=== PATIENT | male | born 1965 | race Caucasian/White ===

== ENCOUNTER 2017-07-10 17:47 | Observation (INO) | payer MEDICARE ==
[2017-07-10] MEDS ORDERED: ONDANSETRON 4 MG/2 ML VIAL IVP STA (18:14)
[2017-07-10] MEDS ORDERED: MECLIZINE 12.5 MG TAB PO STA (18:14)
[2017-07-10] MEDS ORDERED: SODIUM CHLORIDE 0.9% 1,000 ML IV STA (18:14)
--- NOTE | 2017-07-10 18:33 | ED ---
Nausea/Vomiting/Diarrhea HPI - General Chief complaint: Nausea/Vomiting/Diarrhea Stated complaint: MED REACTION, WITHDRAWAL Time Seen by Provider: 07/10/17 18:04 Source: patient, RN notes reviewed Mode of arrival: wheelchair Limitations: no limitations - History of Present Illness Initial comments: This is a 52-year-old male who presents to the emergency department with chief complaint of dizziness. Patient states that he woke up at 9 AM this morning and had sudden onset of dizziness. He states that he feels like the room has been spinning. He admits to associated nausea and states that he vomited 4 times today. He states that he feels especially dizzy when he moves his eyes. He also admits to associated headache. Patient states that his family physician is weaning him off Cymbalta. He states that he was taking 40 mg once a day and is now taking 20 mg twice a day. He is worried that he is having withdrawals. Patient also states that he takes Percocet for back pain. His last pill was this morning and he has not picked up his new prescription. He is also worried that he may be withdrawing from pain medication. Patient states that he had a similar episode of dizziness for 3 weeks ago. Denies fevers or chills, chest pain or shortness of breath, abdominal pain, constipation or diarrhea, vision changes. - Related Data Home Medications Medication Instructions Recorded Confirmed Cyclobenzaprine [Flexeril] 10 mg PO DAILY PRN 07/10/17 07/10/17 DULoxetine HCL [Cymbalta] 20 mg PO BID 07/10/17 07/10/17 Lisinopril [Zestril] 5 mg PO DAILY 07/10/17 07/10/17 oxyCODONE-APAP 7.5-325MG [Percocet 1 tab PO TID PRN 07/10/17 07/10/17 7.5-325 mg] Allergies Allergy/AdvReac Type Severity Reaction Status Date / Time No Known Allergies Allergy Verified 07/10/17 18:13 Review of Systems ROS Statement: Those systems with pertinent positive or pertinent negative responses have been documented in the HPI. ROS Other: All systems not noted in ROS Statement are negative. Past Medical History Additional Past Medical History / Comment(s): HX HEAD INJURY, FREQUENT HEADACHES History of Any Multi-Drug Resistant Organisms: None Reported Past Surgical History: Back Surgery, Cholecystectomy, Orthopedic Surgery Additional Past Surgical History / Comment(s): cervical SX X2 WITH PLATE, lumbar fusion WITH 2 RODS, right shoulder tendon repair, bilateral rotator cuff , TOTAL SHOULDER SX KOFI X5, KOFI ELBOW, PAIN CLINIC Past Anesthesia/Blood Transfusion Reactions: No Reported Reaction Past Psychological History: Anxiety Smoking Status: Never smoker Past Alcohol Use History: Occasional Past Drug Use History: None Reported General Exam - General Exam Comments Initial Comments: General: Awake and alert, well-developed; in no apparent distress. Lying on ED stretcher in a dark room with wash cloth covering his eyes. is at bedside. HEENT: Head atraumatic, normocephalic. Pupils are equal, round and reactive to light. Extraocular movements intact. No nystagmus noted. Oropharynx moist without erythema or exudate. Neck: Supple. Normal ROM. Cardiovascular: Regular rate and rhythm. No murmurs, rubs or gallops. Chest symmetrical. Respiratory: Lungs clear to auscultation bilaterally. No wheezes, rales or rhonchi. Normal respiratory effort with no use of accessory muscles. Abdomen: Soft, non-tender, non-distended. No rigidity, rebound or guarding. Normal bowel sounds in all 4 quadrants. Musculoskeletal: Normal ROM, no tenderness bilateral upper and lower extremities. Skin: [place], warm and dry without rashes or lesions. Neurological: Alert and oriented x3. CN II-XII grossly intact. Speech is fluent and answers are appropriate. No focal neuro deficits. Psychiatric: Normal mood and affect. No overt signs of depression or anxiety noted. Limitations: no limitations Course Vital Signs 07/10/17 07/10/17 07/10/17 17:52 19:18 21:53 Temperature 97.6 F 98.5 F Pulse Rate 82 85 86 Respiratory 18 16 16 Rate Blood Pressure 153/98 142/90 144/81 O2 Sat by Pulse 97 97 99 Oximetry - Reevaluation(s) Reevaluation #1: On reevaluation, patient states that he is feeling better but not 100%. I discussed the case with attending physician, Dr. Suero. Reglan will be administered and patient will undergo computed tomography scan. Pending results. 07/10/17 19:38 Reevaluation #2: I discussed CT results with patient. CT of the brain revealed no acute abnormalities. Patient was lying comfortably on the ED stretcher when I entered the room. He was watching television on his 's cell phone. I did have him sit up to evaluate how he was feeling. Upon sitting up, patient complained of an increase in severity of his dizziness. At the time, patient had been given Reglan and meclizine. He will be given a scopolamine patch and Ativan to see if this relieves his symptoms. We will reevaluate in 45 minutes. 07/10/17 20:35 Medical Decision Making - Medical Decision Making This is a 52-year-old male who presents to the emergency department with chief complaint of dizziness. Patient states that the dizziness came on suddenly and it feels like the room is spinning. He admits to associated nausea, vomiting and headache. Patient was given Antivert, Reglan and Toradol while in the emergency department. CT brain without contrast revealed no acute abnormalities. Patient's vital signs at been stable and he is in no acute distress.patient was given meclizine, Reglan, scopolamine and Ativan while in the emergency department. Patient still continued to complain of symptoms and is unable while ambulating. Patient will be admitted for observation under Dr. Santoyo with neuro consult. Patient is in agreement with admission. All questions were answered. - Lab Data Result diagrams: 07/10/17 18:15 07/10/17 18:15 Lab Results 07/10/17 07/10/17 Range/Units 18:15 18:15 WBC 20.1 H (3.8-10.6) k/uL RBC 5.11 (4.30-5.90) m/uL Hgb 16.2 (13.0-17.5) gm/dL Hct 44.8 (39.0-53.0) % MCV 87.6 (80.0-100.0) fL MCH 31.7 (25.0-35.0) pg MCHC 36.1 (31.0-37.0) g/dL RDW 13.2 (11.5-15.5) % Plt Count 262 (150-450) k/uL Neutrophils % 85 % Lymphocytes % 10 % Monocytes % 3 % Eosinophils % 1 % Basophils % 0 % Neutrophils # 17.2 H (1.3-7.7) k/uL Lymphocytes # 2.0 (1.0-4.8) k/uL Monocytes # 0.6 (0-1.0) k/uL Eosinophils # 0.2 (0-0.7) k/uL Basophils # 0.0 (0-0.2) k/uL Sodium 141 (137-145) mmol/L Potassium 4.5 (3.5-5.1) mmol/L Chloride 104 (98-107) mmol/L Carbon Dioxide 25 (22-30) mmol/L Anion Gap 12 mmol/L BUN 24 H (9-20) mg/dL Creatinine 0.70 (0.66-1.25) mg/dL Est GFR (CKD-EPI)AfAm >90 (>60 ml/min/1.73 sqM) Est GFR (CKD-EPI)NonAf >90 (>60 ml/min/1.73 sqM) Glucose 109 H (74-99) mg/dL Calcium 10.2 (8.4-10.2) mg/dL Total Bilirubin 0.4 (0.2-1.3) mg/dL AST 26 (17-59) U/L ALT 44 (21-72) U/L Alkaline Phosphatase 80 (38-126) U/L Total Protein 7.5 (6.3-8.2) g/dL Albumin 4.6 (3.5-5.0) g/dL Amylase 54 (30-110) U/L Lipase 48 (23-300) U/L - Radiology Data Radiology results: report reviewed CT brain without contrast findings: The calvarium is intact. There is no intracranial hemorrhage. There is no mass or mass effect. There is no definite new attenuation defect. Remainder of the intra-axial and extra-axial compartment examination is unremarkable. The paranasal sinuses are clear, except for the left maxillary sinus where there is a 2.2 cm mucous retention cyst. The middle ear cavities and mastoid sinus air cells are clear. The orbits are intact. Impression: No acute process. Disposition Clinical Impression: Vertigo Disposition: ADMITTED IP TO THIS HOSP Condition: Stable Referrals: Russel Phillips MD [Primary Care Provider] - 1-2 days Time of Disposition: 22:28
[2017-07-10 18:34] LABS: Basophils % (A) 0 %; Eosinophils # (A) 0.2 k/uL (0-0.7); Eosinophils % (A) 1 %; HCT 44.8 % (39.0-53.0); HGB 16.2 gm/dL (13.0-17.5); Lymphocytes % (A) 10 %; MCH 31.7 pg (25.0-35.0); MCHC 36.1 g/dL (31.0-37.0); MCV 87.6 fL (80.0-100.0); Mean Platelet Volume 6.9; Monocytes # (A) 0.6 k/uL (0-1.0); Monocytes % (A) 3 %; Neutrophils # (A) 17.2 k/uL (1.3-7.7); Neutrophils % (A) 85 %; Platelet Count 262 k/uL (150-450); RBC 5.11 m/uL (4.30-5.90); RDW 13.2 % (11.5-15.5); WBC 20.1 k/uL (3.8-10.6)
[2017-07-10] MEDS ORDERED: KETOROLAC 30 MG/ML 1 ML VIAL IVP STA (18:40)
[2017-07-10 18:44] LABS: ALT 44 U/L (21-72); AST 26 U/L (17-59); Albumin 4.6 g/dL (3.5-5.0); Alkaline Phosphatase 80 U/L (38-126); Amylase 54 U/L (30-110); Anion Gap 12 mmol/L; Blood Urea Nitrogen 24 mg/dL (9-20); Calcium 10.2 mg/dL (8.4-10.2); Carbon Dioxide 25 mmol/L (22-30); Chloride 104 mmol/L (98-107); Glucose 109 mg/dL (74-99); Lipase 48 U/L (23-300); Potassium 4.5 mmol/L (3.5-5.1); Sodium 141 mmol/L (137-145); Total Bilirubin 0.4 mg/dL (0.2-1.3); Total Protein 7.5 g/dL (6.3-8.2)
[2017-07-10] MEDS ORDERED: METOCLOPRAMIDE 5 MG/ML 2 ML VIAL IVP STA (19:35)
--- NOTE | 2017-07-10 20:06 | CT ---
EXAMINATION: CT brain wo con DATE AND TIME: 07/10/2017 7:53 PM ORDERING PROVIDER: Darcie Olivier CLINICAL INDICATION: dizziness TECHNIQUE: Standard departmental protocol. DLP 795 mGy-cm. COMPARISON: None. DESCRIPTION: The calvarium is intact. There is no intracranial hemorrhage. There is no mass or mass effect. There is no definite new attenu ation defect. Remainder of the intra-axial and extra-axial compartment examination is unremarkable. The paranasal sinuses are clear, except for the left maxillary sinus where there is a 2.2 cm mucous r etention cyst. The middle ear cavities and mastoid sinus air cells are clear. The orbits are intact. IMPRESSION: NO ACUTE PROCESS.
[2017-07-10] MEDS ORDERED: SCOPOLAMINE 1.5MG/72HR PATCH TRANSDERM STA (20:38)
[2017-07-10] MEDS ORDERED: LORazepam 2 MG/ML INJ IV STA (20:39)
[2017-07-10] MEDS ORDERED: ACETAMINOPHEN TAB 325 MG TAB PO PRN (22:21)
[2017-07-10] MEDS ORDERED: NALOXONE 0.4 MG/ML 1 ML VIAL IV PRN (22:21)
[2017-07-10] MEDS ORDERED: KETOROLAC 30 MG/ML 1 ML VIAL IVP PRN (22:21)
[2017-07-10] MEDS ORDERED: METOCLOPRAMIDE 5 MG/ML 2 ML VIAL IVP PRN (22:24)
[2017-07-10] MEDS ORDERED: MECLIZINE 25 MG TAB PO PRN (22:25)
[2017-07-10 23:14] VITALS: BMI 32.3
[2017-07-10] MEDS ORDERED: LORazepam 2 MG/ML INJ IV PRN ×3 (23:23)
[2017-07-10] MEDS: SODIUM CHLORIDE 0.9% 1,000 ML IV SCH (23:35)
[2017-07-10] MEDS: oxyCODONE-APAP 5-325MG 1 EACH TAB PO PRN (23:41)
[2017-07-10] MEDS: DULoxetine HCL 20 MG CAPSULE.DR PO SCH (23:41)
[2017-07-11] MEDS: oxyCODONE-APAP 5-325MG 1 EACH TAB PO PRN ×2 (06:47→15:44)
[2017-07-11 06:53] LABS: Basophils % (A) 0 %; Eosinophils % (A) 0 %; HCT 42.6 % (39.0-53.0); HGB 14.7 gm/dL (13.0-17.5); Lymphocytes # (A) 2.1 k/uL (1.0-4.8); Lymphocytes % (A) 14 %; MCH 30.7 pg (25.0-35.0); MCHC 34.5 g/dL (31.0-37.0); MCV 88.9 fL (80.0-100.0); Mean Platelet Volume 7.3; Monocytes # (A) 0.6 k/uL (0-1.0); Monocytes % (A) 4 %; Neutrophils # (A) 11.4 k/uL (1.3-7.7); Neutrophils % (A) 80 %; Platelet Count 258 k/uL (150-450); RDW 13.5 % (11.5-15.5); WBC 14.3 k/uL (3.8-10.6)
[2017-07-11 07:22] LABS: ALT 36 U/L (21-72); AST 22 U/L (17-59); Albumin 3.8 g/dL (3.5-5.0); Alkaline Phosphatase 67 U/L (38-126); Anion Gap 10 mmol/L; Blood Urea Nitrogen 33 mg/dL (9-20); Calcium 9.5 mg/dL (8.4-10.2); Carbon Dioxide 24 mmol/L (22-30); Chloride 107 mmol/L (98-107); Glucose 92 mg/dL (74-99); Potassium 4.9 mmol/L (3.5-5.1); Sodium 141 mmol/L (137-145); Total Bilirubin 0.3 mg/dL (0.2-1.3); Total Protein 6.4 g/dL (6.3-8.2)
[2017-07-11] MEDS: DULoxetine HCL 20 MG CAPSULE.DR PO SCH (08:13)
[2017-07-11] MEDS ORDERED: LISINOPRIL 5 MG TAB PO SCH (09:00)
[2017-07-11] MEDS: SODIUM CHLORIDE 0.9% 1,000 ML IV SCH (12:44)
--- NOTE | 2017-07-11 13:12 | P.HPIM ---
History of Present Illness H&P Date: 07/11/17 Chief Complaint: Dizziness, vomiting HISTORY AND PHYSICAL AND DISCHARGE SUMMARY: This is a 52-year-old male patient of Dr. Phillips with history of head injury 25years ago, history of cervical stenosis and lumbar stenosis status post Surgeries and back surgeries, history of hypertension and anxiety comes in with new onset of dizziness associated with nausea and multiple episodes of vomiting that started yesterday at 9 AM. Patient felt dizzy on changing position of his head in the bed. He states he had similar symptoms 3 weeks ago. Both of these symptoms initiated on waking up in the morning. Denies any tinnitus or hearing loss. Patient denies any motor or sensory loss. He denies any vision loss. No history of seizure-like activity. No history of stroke in the past. Patient was recently switched from 40 mg once daily of simvastatin 20 mg twice daily and feels he might be withdrawing from it. On evaluation in the morning he is feeling better. Dizziness is improved. Patient received multiple medication in the ER including Ativan, meclizine, ketorolac and Reglan. CT head was negative. WBC elevated which improved from 20-14 secondary to dehydration. Patient presented and appears to be related to benign positional vertigo. Timmy maneuver was done bedside with nystagmus to the right. Neurology evaluation pending Review of Systems Constitutional: Denies chills, Denies fever, Denies lethargy, Denies malaise, Denies poor appetite, Denies weakness, Denies weight loss Eyes: denies decreased vision, denies diplopia, denies discharge, denies pain Ears: deny: decreased hearing Ears, nose, mouth and throat: Denies dental pain, Denies headache, Denies nasal discharge, Denies nose pain Cardiovascular: Denies chest pain, Denies decreased exercise tolerance, Denies edema, Denies high blood pressure, Denies irregular heart beat, Denies palpitations, Denies paroxysmal nocturnal dyspnea, Denies rapid heart beat, Denies shortness of breath Respiratory: Denies congestion, Denies cough, Denies cough with sputum, Denies dyspnea, Denies home oxygen, Denies wheezing Gastrointestinal: Denies abdominal pain, Denies change in bowel habits, Denies coffee ground emesis, Denies early satiety, Denies excessive gas, Denies heartburn, Denies hematemesis, Denies hematochezia, Denies loss of appetite, Denies nausea, Denies vomiting Genitourinary: Denies dysuria, Denies flank pain, Denies kidney stones, Denies menorrhagia, Denies urgency, Denies urinary frequency Musculoskeletal: Denies gait dysfunction, Denies limitation of motion, Denies morning stiffness, Denies muscle cramps Integumentary: Denies rash, Denies wounds, Denies brittle nails, Denies change in hair/nails, Denies darkening of skin Neurological: Denies balance difficulties, Denies change in speech, Denies double vision, Denies gait dysfunction, Denies loss of vision, Denies motor disturbance, Denies numbness, Denies paralysis, Denies paresthesias, Denies seizures Psychiatric: Denies anxiety, Denies depression Endocrine: Denies excessive sweating, Denies excessive thirst, Denies high blood sugars, Denies palpitations Hematologic/Lymphatic: Denies easy bruising, Denies lymphadenopathy Past Medical History Additional Past Medical History / Comment(s): HX HEAD INJURY, FREQUENT HEADACHES History of Any Multi-Drug Resistant Organisms: None Reported Past Surgical History: Back Surgery, Cholecystectomy, Orthopedic Surgery Additional Past Surgical History / Comment(s): cervical SX X2 WITH PLATE, lumbar fusion WITH 2 RODS, right shoulder tendon repair, bilateral rotator cuff , TOTAL SHOULDER SX KOFI X5, KOFI ELBOW, PAIN CLINIC Past Anesthesia/Blood Transfusion Reactions: No Reported Reaction Smoking Status: Never smoker - Past Family History Mother Family Medical History: COPD, Dementia Father Family Medical History: Diabetes Mellitus Additional Family Medical History / Comment(s): neuropathy Medications and Allergies Home Medications Medication Instructions Recorded Confirmed Type Cyclobenzaprine [Flexeril] 10 mg PO DAILY PRN 07/10/17 07/10/17 History DULoxetine HCL [Cymbalta] 20 mg PO BID 07/10/17 07/10/17 History Lisinopril [Zestril] 5 mg PO DAILY 07/10/17 07/10/17 History oxyCODONE-APAP 7.5-325MG [Percocet 1 tab PO TID PRN 07/10/17 07/10/17 History 7.5-325 mg] Meclizine [Antivert] 25 mg PO Q6HR PRN #60 tab 07/11/17 Rx Allergies Allergy/AdvReac Type Severity Reaction Status Date / Time No Known Allergies Allergy Verified 07/10/17 23:03 Physical Exam Vitals: Vital Signs Temp Pulse Pulse Resp BP BP Pulse Ox 07/11/17 07:59 98 F 60 16 114/55 95 07/11/17 04:00 18 07/11/17 00:00 18 07/10/17 23:04 97.7 F 64 18 147/88 95 07/10/17 22:54 98.2 F 84 18 141/81 98 07/10/17 21:53 98.5 F 86 16 144/81 99 07/10/17 19:18 85 16 142/90 97 07/10/17 17:52 97.6 F 82 18 153/98 97 Intake and Output 07/10/17 07/11/17 07/11/17 22:59 06:59 14:59 Other: Voiding Method Toilet # Voids 1 Weight 90.718 kg 90.7 kg - Constitutional General appearance: cooperative, no acute distress, obese - EENT Eyes: anicteric sclerae, PERRLA, normal appearance Nystagmus present on the right ENT: hearing grossly normal - Neck Neck: no lymphadenopathy, normal ROM, no other, no rigidity, no stridor, no thyromegaly - Respiratory Respiratory: bilateral: CTA, negative: diminished, dullness, rales, rhonchi - Cardiovascular Rhythm: regular Heart sounds: normal: S1, S2 Abnormal Heart Sounds: no systolic murmur, no diastolic murmur, no rub, no S3 Gallop, no S4 Gallop, no click, no other - Gastrointestinal General gastrointestinal: normal bowel sounds, soft - Integumentary Integumentary: no rash - Neurologic Neurologic: CNII-XII intact - Musculoskeletal Musculoskeletal: gait normal, strength equal bilaterally - Psychiatric Psychiatric: A&O x's 3, appropriate affect Results CBC & Chem 7: 07/11/17 06:19 07/11/17 06:19 Labs: Abnormal Lab Results - Last 24 Hours (Table) 07/10/17 07/10/17 07/11/17 Range/Units 18:15 18:15 06:19 WBC 20.1 H 14.3 H (3.8-10.6) k/uL Neutrophils # 17.2 H 11.4 H (1.3-7.7) k/uL BUN 24 H (9-20) mg/dL Glucose 109 H (74-99) mg/dL 07/11/17 Range/Units 06:19 WBC (3.8-10.6) k/uL Neutrophils # (1.3-7.7) k/uL BUN 33 H (9-20) mg/dL Glucose (74-99) mg/dL Thrombosis Risk Factor Assmnt - DVT/VTE Prophylaxis DVT/VTE Prophylaxis: Mechanical Prophylaxis ordered - Choose All That Apply Each Factor Represents 1 point: Age 41-60 years Thrombosis Risk Factor Assessment Total Risk Factor Score: 1 Thrombosis Risk Factor Assessment Level: Low Risk Assessment and Plan Plan: #1 acute vertigo associated with vomiting. CT head negative for any acute lesion. Neurological exam without any finding of stroke. Patient's presentation appears to be related to benign positional vertigo with improvement with meclizine. Patient instructed on how to perform Apley's maneuver at home. Meclizine prescribed for vertigo. Patient instructed not to drive after demonstration of the medication #2 leukocytosis likely secondary to dehydration from recurrent vomiting. Improving. Continue fluids at 75 mL per hour #3 hypertension continue lisinopril 5 mg daily #4 anxiety continue Cymbalta 20 mg twice a day #5 chronic back pain with cervical and lumbar stenosis status post cervical surgeries with plate and lumbar fusion with rods. Continue Percocet as needed for pain control #6 DVT prophylaxis with SCDs CODE STATUS full code Disposition patient can be discharged home once cleared by neurologist CC a copy of discharge to Dr. Phillips
[2017-07-11 15:28] VITALS: BP 132/81; PULSE 64; RESP 17; TEMP 98.7
--- NOTE | 2017-07-11 23:43 | CONS ---
CONSULTATION DATE OF CONSULTATION: 07/11/2017. CHIEF COMPLAINT: Vertigo. HISTORY OF PRESENT ILLNESS: The patient is a pleasant 52-year-old male who is being evaluated by the neurology service per the request of Dr. Nathan for vertigo. The patient was brought into [facility] Emergency Room with the complaints of sudden onset of vertigo and nausea. The patient states that he has had vertigo in the past, but it would only last a few minutes and it would resolve on its own. When the symptoms did not resolve after several hours, he was brought into [facility] Emergency Room. He denies any hearing loss or tinnitus. A stat CT scan of the brain was done, which was normal. His CBC showed mild leukocytosis at 14.3. His comprehensive metabolic profile was normal except for slightly elevated BUN at 33. The patient was given Antivert in the emergency room and admitted for further workup and management. At the time of my evaluation, he reports complete resolution of his vertigo after his Antivert dose. He has been ambulating with no difficulties. He denies any numbness or tingling and denies any weakness. He denies any headache. PAST MEDICAL HISTORY: Recurrent vertigo, history of closed head injury, recurrent headaches, history of spine surgery, cholecystectomy, orthopedic surgeries, anxiety disorder. SOCIAL HISTORY: He denies any tobacco, alcohol or drug use. FAMILY HISTORY: Positive for diabetes, dementia and chronic obstructive pulmonary disease. HOME MEDICATIONS: Reviewed in the chart. ALLERGIES: No known drug allergies. REVIEW OF SYSTEM: As mentioned above and otherwise negative. EXAM: Vital signs show a temperature of 98.7, pulse 64, respirations 17, blood pressure 132/81. GENERAL APPEARANCE: The patient is a well-developed male who appears to be in no acute distress. HEENT: Normocephalic, atraumatic. No facial asymmetry is seen. Extraocular muscles are intact with no nystagmus seen. NECK: Supple with no masses felt. CARDIOVASCULAR: Regular rate and rhythm. ABDOMEN: Nontender nondistended. Extremities showed no edema or clubbing. NEUROLOGICAL: The patient is alert, aware and oriented x3. Speech and language are normal. Strength is full in all 4 extremities. Sensory was normal to light touch in all 4 extremities. No tremors or seizure-like activity is seen. No facial asymmetry is noticed on cranial nerve testing. IMPRESSION: 1. Vertigo. 2. Nausea. 3. Leukocytosis. RECOMMENDATION: The patient's vertigo and nausea have completely resolved with Antivert, as mentioned above. His neurological examination is normal and his CT scan of the brain showed no abnormalities. The patient likely has benign paroxysmal vertigo. He should be maintained on oral Antivert as needed at home. I also recommended to the patient to follow up with an ENT physician. Consider further workup for his leukocytosis. Otherwise, from a neurology standpoint, the patient is cleared for discharge. Thank you for allowing me to participate in the care of your patient. If you have any questions, please feel free to contact me. MILKA / IJN: [id number] /
== END 2017-07-11 19:40 | disposition home or self-care (01) ==
LOC: EC 17:47 → 3OBS 22:13
PROVIDERS: ADMIT Internal Medicine Geriatric Medicine; ATTEND Internal Medicine Geriatric Medicine
DX: R42 Dizziness and giddiness (principal); D72.829 Elevated white blood cell count, unspecified; E86.0 Dehydration; I10 Essential (primary) hypertension; F41.9 Anxiety disorder, unspecified; G89.29 Other chronic pain; M54.9 Dorsalgia, unspecified; M48.061 Spinal stenosis, lumbar region without neurogenic claudication; M48.02 Spinal stenosis, cervical region; Z98.1 Arthrodesis status; Z79.899 Other long term (current) drug therapy; Z90.49 Acquired absence of other specified parts of digestive tract; Z87.828 Personal history of other (healed) physical injury and trauma; H55.00 Unspecified nystagmus; Z82.5 Family history of asthma and other chronic lower respiratory diseases; Z82.0 Family history of epilepsy and other diseases of the nervous system; Z83.3 Family history of diabetes mellitus; E66.9 Obesity, unspecified; Z68.32 Body mass index [BMI] 32.0-32.9, adult
CPT/HCPCS: 99285 ×2; 96361 ×3; 96374 ×2; 96375 ×4; 36415; 80053 ×2; 82150; 83690; 85025 ×2; 70450; G0378 ×2; J2060; J2765; J2405; J1885

== ENCOUNTER → 2018-04-03 | Outpatient (CLI) | payer MEDICARE ==
--- NOTE | 2018-04-03 20:32 | CONS ---
CONSULTATION DATE OF SERVICE: 04/03/2018 This patient is a 53-year-old gentleman who has been evaluated in the sleep center for possible obstructive sleep apnea-hypopnea syndrome. HISTORY OF PRESENT ILLNESS/SLEEP-WAKE EVALUATION: Patient's usual sleep schedule from 10:30 p.m. until 7:30 or 8 a.m. He does have a problem with falling asleep, although there is no TV in the bedroom. He usually sleeps on the side position. According to his , he snores and has witnessed episodes of stopped breathing during sleep. He wakes up from sleep 3 times with up to 3 episodes of nocturia. He does have some movements of his arms and legs during the night; tremors and kicking. He may see his dreams while in the process of falling asleep. In the morning he wakes up tired, falling asleep during the day, has problems with concentration and anxiety. [place] Sleepiness Scale is 9. PAST MEDICAL HISTORY: Positive for: 1. Hypertension. 2. Multiple neck and back problems. 3. Shoulder problems. PAST SURGICAL HISTORY: 1. Cholecystectomy. 2. Back surgeries. 3. Knee surgery. 4. Two neck surgeries. 5. Five shoulder surgeries. MEDICATIONS: 1. Percocet. 2. Gabapentin. 3. Clonazepam. 4. Lisinopril. 5. Melatonin. 6. Magnesium supplement. 7. Joint supplement. 8. Multivitamins. SOCIAL HISTORY: Negative for smoking. Alcohol consumption occasional. FAMILY HISTORY: Hypertension, hyperlipidemia, arthritis, snoring, cancer, insomnia, headaches, acid reflux, diabetes mellitus, restless legs. REVIEW OF SYSTEMS: Multiple awakenings from sleep, tiredness during the day, pain in different parts of the body. PHYSICAL EXAMINATION: GENERAL: A pleasant gentleman without distress. VITAL SIGNS: BP 150/89, HR 70, RR 16, height 5 feet 5-1/2 inches, weight 220.6, body mass index 36.0, temperature 98.4, oxygen saturation at room air 95%. HEENT: PERRLA, EOMI. Evaluation of oropharynx showed tongue protrudes midline. Extremely low position of soft palate. Restriction of nasal breathing bilaterally. NECK: Supple. No JVD. Thyroid is not palpable. Wide neck. It measures 18 inches in circumference. LUNGS: Clear to percussion and to auscultation. Good air exchange. No wheezing or rhonchi. HEART: S1, S2 regular. No murmurs, gallops or rubs. ABDOMEN: Slightly obese. EXTREMITIES: No clubbing or cyanosis. [employer]ILDER HEAV[employer] SERVICE: Awake, alert, and oriented X3. Cranial nerves 2 to 7 intact. There is no fasciculation or atrophy. noted. No focal deficits observed. IMPRESSION: 1. Snoring, witnessed episodes of stopped breathing during sleep, extremely low position of soft palate, restriction of nasal breathing, wide neck, awakenings from sleep, daytime sleepiness; obstructive sleep apnea-hypopnea syndrome. 2. Obesity; body mass index 36.0. 3. Hypertension. 4. Status post 5 shoulder surgeries. 5. Status post 2 neck surgeries. 6. Status post low back surgery. 7. Status post left knee surgery. 8. Status post cholecystectomy. PLAN: 1. Polysomnography for evaluation of patient's breathing during sleep. 2. CPAP/BiPAP titration if sleep study confirms obstructive sleep apnea-hypopnea syndrome. 3. Preferable position during sleep on the side. 4. No driving if patient feels any sleepiness. 5. I will see patient for follow up visit to explain results of testing and following plan. Thank you very much for referring this patient for consultation. Sincerely, Acosta Jasso MD, PhD, FAASM Diplomat of [place] [employer] [place] [employer] Director Of Customer Acquisition of [facility] [place] MMDENISE / SOPHIA: [id number] /
== END | disposition home or self-care (01) ==
LOC: SLEEP 14:12
PROVIDERS: ATTEND Internal Medicine
DX: G47.33 Obstructive sleep apnea (adult) (pediatric) (principal); E66.9 Obesity, unspecified; I10 Essential (primary) hypertension; Z68.36 Body mass index [BMI] 36.0-36.9, adult; Z90.49 Acquired absence of other specified parts of digestive tract; Z79.891 Long term (current) use of opiate analgesic; Z79.899 Other long term (current) drug therapy; Z98.890 Other specified postprocedural states
CPT/HCPCS: 99211

== ENCOUNTER 2018-04-16 00:46 | Emergency (ER) | payer MEDICARE ==
[2018-04-16] MEDS ORDERED: METOCLOPRAMIDE 5 MG/ML 2 ML VIAL IVP STA (01:33)
[2018-04-16] MEDS ORDERED: diphenhydrAMINE 50 MG/ML 1 ML VIAL IVP STA (01:33)
[2018-04-16] MEDS ORDERED: SODIUM CHLORIDE 0.9% 1,000 ML IV STA (01:34)
[2018-04-16] MEDS ORDERED: KETOROLAC 30 MG/ML 1 ML VIAL IVP STA (01:34)
--- NOTE | 2018-04-16 02:04 | ED ---
Headache HPI - General Chief Complaint: Headache Stated Complaint: migraine,vomiting Time Seen by Provider: 04/16/18 01:02 Mode of arrival: ambulatory Limitations: no limitations - History of Present Illness Initial Comments: Nuon is a 53-year-old male with a past medical history of traumatic brain injury 27 years ago as well as chronic headaches. Patient presents to the emergency department today for evaluation of progressively worsening migraine. Patient reports that he typically gets injections in his neck for treatment of his migraines however he doesn't believe his last injections worked as he is now having more frequent headaches. - Related Data Home Medications Medication Instructions Recorded Confirmed Cyclobenzaprine [Flexeril] 10 mg PO DAILY PRN 07/10/17 07/10/17 DULoxetine HCL [Cymbalta] 20 mg PO BID 07/10/17 07/10/17 Lisinopril [Zestril] 5 mg PO DAILY 07/10/17 07/10/17 oxyCODONE-APAP 7.5-325MG [Percocet 1 tab PO TID PRN 07/10/17 07/10/17 7.5-325 mg] Previous Rx's Medication Instructions Recorded Meclizine [Antivert] 25 mg PO Q6HR PRN #60 tab 07/11/17 Allergies Allergy/AdvReac Type Severity Reaction Status Date / Time No Known Allergies Allergy Verified 04/16/18 00:57 Review of Systems ROS Statement: Those systems with pertinent positive or pertinent negative responses have been documented in the HPI. ROS Other: All systems not noted in ROS Statement are negative. Past Medical History Additional Past Medical History / Comment(s): HX HEAD INJURY, FREQUENT HEADACHES History of Any Multi-Drug Resistant Organisms: None Reported Past Surgical History: Back Surgery, Cholecystectomy, Orthopedic Surgery Additional Past Surgical History / Comment(s): cervical SX X2 WITH PLATE, lumbar fusion WITH 2 RODS, right shoulder tendon repair, bilateral rotator cuff , TOTAL SHOULDER SX KOFI X5, KOFI ELBOW, PAIN CLINIC Past Anesthesia/Blood Transfusion Reactions: No Reported Reaction Past Psychological History: Anxiety Smoking Status: Never smoker - Past Family History Mother Family Medical History: COPD, Dementia Father Family Medical History: Diabetes Mellitus Additional Family Medical History / Comment(s): neuropathy General Exam Limitations: no limitations Course Vital Signs 04/16/18 04/16/18 00:52 04:03 Temperature 98.1 F 97.9 F Pulse Rate 68 62 Respiratory 16 20 Rate Blood Pressure 163/103 135/85 O2 Sat by Pulse 98 95 Oximetry Medical Decision Making - Medical Decision Making Patient was seen and evaluated history is obtained from the patient patient with a history of migraines which she reports her worse and wintered" causing muscle spasms No red flag symptoms, was not sudden in onset, was not the headache of his life , no associated neurologic deficits Meds were ordered Patient was reevaluated after IV fluids, Reglan and Benadryl and Toradol she reports he is feeling sleepy but his headache has not improved 3 of previous medical record reveals the patient has been treated with IM Dilaudid and Zofran in the past, IV Morphine was ordered Patient was reevaluated after morphine, reports his headache is now reduced from a 10 out of 10 to a 3 out of 10. He was able to ambulate independently to the restroom. At this time patient states he feels comfortable with the plan for discharge home. Disposition Clinical Impression: Migraine Disposition: HOME SELF-CARE Condition: Good Instructions: Acute Headache (ED) Is patient prescribed a controlled substance at d/c from ED?: No Referrals: Russel Phillips MD [Primary Care Provider] - 1-2 days
[2018-04-16] MEDS ORDERED: MORPHINE SULFATE 4 MG/ML SYRINGE IVP STA (02:22)
[2018-04-16 04:04] VITALS: BP 135/85; PULSE 62; RESP 20; TEMP 97.9
== END 2018-04-16 04:06 | disposition home or self-care (01) ==
LOC: EC 00:46
DX: G43.909 Migraine, unspecified, not intractable, without status migrainosus (principal); F41.9 Anxiety disorder, unspecified; Z87.820 Personal history of traumatic brain injury; Z79.899 Other long term (current) drug therapy
CPT/HCPCS: 99283; 96374; 96375 ×3; 96361 ×2; J2270; J1200; J2765; J1885

== ENCOUNTER → 2018-06-26 | Outpatient (CLI) | payer MEDICARE ==
--- NOTE | 2018-06-26 17:09 | PN ---
PROGRESS NOTE DATE OF SERVICE: 06/26/2018 53-year-old. Gentleman who has been followed in [facility] for treatment of obstructive sleep apnea-hypopnea syndrome. Recently, the patient had a polysomnogram and CPAP titration and I discussed results of sleep studies with patient in detail. He has severe sleep apnea, which was corrected during CPAP titration. Subsequently, the patient received CPAP unit, started to use it. Today is his first visit after he was started on treatment with CPAP. The patient has difficulties to use CPAP because it is difficult for him to breathe through the nose and feels a snort enough of pressure when he goes through the nasal mask. The patient has sinuses problems. He increased humidity in his CPAP unit to the maximal but he still feels dryness in his nose. I checked CPAP unit. CPAP pressure is 10 cm of water. The patient is using it every night, but most of the night is short, usage around average 2.5 hours, leak is 6 L/minute which is acceptable. Apnea-hypopnea index reading for the last month 4.1. [place] Sleepiness Scale today is 7. MEDICATIONS: Percocet, gabapentin, clonazepam lisinopril, multivitamins. PHYSICAL EXAM: Patient in no distress. BP 140/83, HR 62, RR 16, weight 219.6, temp 98, oxygen saturation at room air 96%. Oropharynx: Low position of soft palate. Mallampati 4. Restriction of nasal breathing bilaterally. Neck Supple, no JVD. Thyroid is not palpable. LUNGS Clear to percussion and to auscultation. Good air exchange. No wheezing or rhonchi. HEART S1, S2 regular. No murmurs, gallops, or rubs. ABDOMEN: Slightly obese. Soft and nontender. Bowel sounds are present. No organomegaly appreciated. EXTREMITIES No clubbing or cyanosis. COLLEGE ADMISSIONS COUNSELOR Awake, alert, and oriented X3. Cranial nerves 2 to 7 intact. There is no fasciculation or atrophy. noted. No focal deficits observed. IMPRESSION: 1. Severe obstructive sleep apnea-hypopnea syndrome; apnea-hypopnea index 68.4 with severe oxygen desaturation to 71.3%. Respiration is on control with CPAP but patient feels discomfort with usage of CPAP. 2. Obesity. 3. Hypertension. 4. Status post 5 shoulder surgeries. 5. Status post neck surgery. 6. Status post low back surgery. 7. Status post left knee surgery. 8. Status post cholecystectomy. 9. Sinus problems. PLAN: 1. I decreased pressure in CPAP unit down to 8 cm of water. 2. Patient will use nasal strips. 3. We may consider a different style of mask. 4. Losing weight. 5. No driving if feeling sleepiness. 6. Continue to use CPAP equipment every night for the whole night. Thank you very much for allowing me to participate in management of your patient. Sincerely, Acosta Jasso MD, PhD, FAASM Diplomat of [employer] Producer Assistant of [facility] [place] MMODL / IJN: [id number] /
== END | disposition home or self-care (01) ==
LOC: SLEEP 15:36
PROVIDERS: ATTEND Internal Medicine
DX: G47.33 Obstructive sleep apnea (adult) (pediatric) (principal); E66.9 Obesity, unspecified; I10 Essential (primary) hypertension; Z99.89 Dependence on other enabling machines and devices; Z79.891 Long term (current) use of opiate analgesic; Z79.899 Other long term (current) drug therapy; Z98.890 Other specified postprocedural states; Z90.49 Acquired absence of other specified parts of digestive tract

== ENCOUNTER → 2018-08-14 | Outpatient (CLI) | payer MEDICARE ==
--- NOTE | 2018-08-14 16:00 | PN ---
PROGRESS NOTE DATE OF SERVICE: 08/14/2018 This patient is a 53-year-old gentleman who has been followed in [facility] for treatment of obstructive sleep apnea-hypopnea syndrome. This is his second visit after receiving his CPAP unit. During his previous visit, which was about 1-1/2 months ago, the patient was not able to use the machine and I had to decrease the pressure on his CPAP unit. After that the patient successfully used his CPAP equipment every night, practically without any significant problems. [place] Sleepiness Scale today is 7, which is normal. MEDICATIONS: 1. Percocet. 2. Gabapentin. 3. Clonazepam. 4. Lisinopril. 5. Multivitamins. PHYSICAL EXAMINATION: GENERAL: A pleasant patient in no distress. VITAL SIGNS: BP 131/85, HR 80, RR 16, height 5 feet 5-1/2 inches, weight 216 pounds, body mass index 35.3, temperature 98.1, oxygen saturation at room air 95%. HEENT: PERRLA, EOMI. Evaluation of oropharynx showed tongue protrudes midline. Extremely low position of soft palate. Mallampati IV. NECK: Supple. No JVD. Thyroid is not palpable. LUNGS: Clear to percussion and to auscultation. Good air exchange. No wheezing or rhonchi. HEART: S1, S2 regular. No murmurs, gallops or rubs. ABDOMEN: Slightly obese. EXTREMITIES: No clubbing or cyanosis. LABOR DELIVERY RN: Awake, alert, and oriented X3. Cranial nerves 2 to 7 intact. There is no fasciculation or atrophy. noted. No focal deficits observed. I checked the patient's CPAP unit. CPAP pressure is 8 cm of water. Usage is 100% of the time, and 70% of the time for more than 4 hours per night. Average usage 5.1 hours. Leak is 8 L/minute, which is in normal range. Apnea-hypopnea index reading from the machine for the last month is only 2.4, which is absolutely normal. IMPRESSION: 1. Severe obstructive sleep apnea-hypopnea syndrome. Apnea-hypopnea index 68.4, under full control with CPAP. Patient demonstrated good compliance with treatment, benefitting from treatment. 2. Obesity. 3. Hypertension. 4. Status post shoulder surgery x5. 5. Status post neck surgery. 6. Status post low back surgery. 7. Status post left knee surgery. 8. Status post cholecystectomy. 9. Sinus problems. PLAN: 1. Will maintain all necessary CPAP prescriptions for mask, tube, filters. 2. Patient will continue to use CPAP equipment every night for the whole night. 3. Losing weight. 4. Sleep hygiene with regular time in bed for at least 8 hours. 5. No driving if feeling any sleepiness. Thank you very much for allowing me to participate in the management of your patient. Sincerely, Acosta Jasso MD, PhD, FAASM Diplomat of [place] [employer] [place] [employer] Typewriter Operator Automatic of [facility] [place] MMODL / IJN: [id number] /
== END | disposition home or self-care (01) ==
LOC: SLEEP 14:37
PROVIDERS: ATTEND Internal Medicine
DX: G47.33 Obstructive sleep apnea (adult) (pediatric) (principal); E66.9 Obesity, unspecified; I10 Essential (primary) hypertension; J34.9 Unspecified disorder of nose and nasal sinuses; Z99.89 Dependence on other enabling machines and devices; Z90.49 Acquired absence of other specified parts of digestive tract; Z98.890 Other specified postprocedural states; Z79.899 Other long term (current) drug therapy

== ENCOUNTER → 2018-09-26 | Outpatient (CLI) | payer MEDICARE ==
[2018-09-26 15:50] LABS: Basophils % (A) 0 %; Eosinophils # (A) 0.3 k/uL (0-0.7); Eosinophils % (A) 4 %; HGB 14.7 gm/dL (13.0-17.5); Lymphocytes # (A) 2.9 k/uL (1.0-4.8); Lymphocytes % (A) 37 %; MCH 29.7 pg (25.0-35.0); MCHC 33.4 g/dL (31.0-37.0); MCV 88.9 fL (80.0-100.0); Monocytes # (A) 0.4 k/uL (0-1.0); Monocytes % (A) 5 %; Neutrophils % (A) 52 %; Platelet Count 205 k/uL (150-450); RBC 4.95 m/uL (4.30-5.90); RDW 13.3 % (11.5-15.5); WBC 7.7 k/uL (3.8-10.6)
[2018-09-26 19:06] LABS: Rheumatoid Factor 17 IU/mL (0-15)
[2018-09-26 20:23] LABS: Erythrocyte Sedimentation Rate 2 mm/hr (0-15)
== END | disposition home or self-care (01) ==
LOC: LABWHC1 15:31
PROVIDERS: ATTEND Podiatrist Foot & Ankle Surgery
DX: L08.9 Local infection of the skin and subcutaneous tissue, unspecified (principal); M19.90 Unspecified osteoarthritis, unspecified site
CPT/HCPCS: 36415; 84550; 85025; 85652; 86038; 86431

== ENCOUNTER 2019-01-05 03:57 | Emergency (ER) | payer MEDICARE ==
[2019-01-05] MEDS ORDERED: METOCLOPRAMIDE 5 MG/ML 2 ML VIAL IVP STA (04:09)
[2019-01-05] MEDS ORDERED: SODIUM CHLORIDE 0.9% 1,000 ML IV ONE (04:09)
[2019-01-05] MEDS ORDERED: diphenhydrAMINE 50 MG/ML 1 ML VIAL IVP STA (04:09)
[2019-01-05] MEDS ORDERED: KETOROLAC 30 MG/ML 1 ML VIAL IVP STA (04:09)
[2019-01-05] MEDS ORDERED: MORPHINE SULFATE 4 MG/ML SYRINGE IVP STA ×2 (04:30→06:06)
--- NOTE | 2019-01-05 05:06 | ED ---
Headache HPI - General Chief Complaint: Headache Stated Complaint: Headache Time Seen by Provider: 01/05/19 04:08 Limitations: no limitations - History of Present Illness Initial Comments: Patient is a 53-year-old gentleman with a history of chronic migraines for 17 to the emergency department today for evaluation of migraine. Patient reports that he woke approximately 5 hours ago experiencing a migraine he took some Percocet with no improvement at which time decided to come to the ER. Patient states this is identical to previous migraines. Patient states that typically migraine cocktail doesn't work for him and he requires morphine for his headaches. MD Complaint: headache -: hour(s) Onset Description: awoke with symptoms Severity: moderate Quality: full, constant Consistency: constant Improves With: nothing Worsens With: light, noise Associated Symptoms: photophobia Treatments Prior to Arrival: prescription analgesic (Percocet) - Related Data Home Medications Medication Instructions Recorded Confirmed Cyclobenzaprine [Flexeril] 10 mg PO DAILY PRN 07/10/17 07/10/17 DULoxetine HCL [Cymbalta] 20 mg PO BID 07/10/17 07/10/17 Lisinopril [Zestril] 5 mg PO DAILY 07/10/17 07/10/17 oxyCODONE-APAP 7.5-325MG [Percocet 1 tab PO TID PRN 07/10/17 07/10/17 7.5-325 mg] Previous Rx's Medication Instructions Recorded Meclizine [Antivert] 25 mg PO Q6HR PRN #60 tab 07/11/17 Allergies Allergy/AdvReac Type Severity Reaction Status Date / Time No Known Allergies Allergy Verified 01/05/19 04:06 Review of Systems ROS Statement: Those systems with pertinent positive or pertinent negative responses have been documented in the HPI. ROS Other: All systems not noted in ROS Statement are negative. Past Medical History Additional Past Medical History / Comment(s): HX HEAD INJURY, FREQUENT HEADACHES History of Any Multi-Drug Resistant Organisms: None Reported Past Surgical History: Back Surgery, Cholecystectomy, Orthopedic Surgery Additional Past Surgical History / Comment(s): cervical SX X2 WITH PLATE, lumbar fusion WITH 2 RODS, right shoulder tendon repair, bilateral rotator cuff, TOTAL SHOULDER SX KOFI X5, KOFI ELBOW, PAIN CLINIC Past Anesthesia/Blood Transfusion Reactions: No Reported Reaction Past Psychological History: Anxiety Smoking Status: Never smoker Past Alcohol Use History: Rare Past Drug Use History: None Reported - Past Family History Mother Family Medical History: COPD, Dementia Father Family Medical History: Diabetes Mellitus Additional Family Medical History / Comment(s): neuropathy General Exam - General Exam Comments Initial Comments: Physical Exam GENERAL: Patient appears uncomfortable sitting in a dark room with his shirt over his face HENT: Normocephalic, Atraumatic. EYES: PERRL, EOMI PULMONARY: Unlabored respirations. No audible rales rhonchi or wheezing was noted. CARDIOVASCULAR: There is a regular rate and rhythm without any murmurs gallops or rubs. ABDOMEN: Soft and nontender with normal bowel sounds. SKIN: Skin is clear with no lesions or rashes and otherwise unremarkable. : Deferred NEUROLOGIC: Patient is alert and oriented x3. Moving all extremities spontaneously MUSCULOSKELETAL: Normal extremities with adequate strength and full range of motion. No lower extremity swelling or edema. No calf tenderness. PSYCHIATRIC: Normal psychiatric evaluation. Limitations: no limitations Course Vital Signs 01/05/19 01/05/19 04:04 06:06 Temperature 97.6 F 98 F Pulse Rate 59 L 60 Respiratory 20 18 Rate Blood Pressure 148/94 142/94 O2 Sat by Pulse 98 96 Oximetry Medical Decision Making - Medical Decision Making The patient was seen and evaluated history is obtained from patient excellent history and physical exam consistent with chronic recurrent migraine Migraine cocktail as well as morphine were ordered Patient was reevaluated and states that he didn't feel anything when they pushed the morphine which she usually can feel I advised the patient will give a more time to see if the morphine helps his headache Patient was reevaluated at 2 hours, had persistent headache and repeat dose of morphine was ordered per patient's request She was reevaluated he reported some improvement in his headache. At this time I offered the patient further evaluation with computed tomography scan admission the hospital for evaluation by neurology. Patient states he doesn't feel that necessary this is a standard migraine for him. Prefer to go home take his home medications and rest. Disposition Clinical Impression: Headache Disposition: HOME SELF-CARE Condition: Stable Instructions (If sedation given, give patient instructions): Acute Headache (ED) Is patient prescribed a controlled substance at d/c from ED?: No Referrals: Russel Phillips MD [Primary Care Provider] - 1-2 days
[2019-01-05 06:17] VITALS: BP 142/94; PULSE 60; RESP 18; TEMP 98
== END 2019-01-05 07:38 | disposition home or self-care (01) ==
LOC: EC 03:57
DX: R51 Headache (principal); H53.149 Visual discomfort, unspecified; F41.9 Anxiety disorder, unspecified; Z86.69 Personal history of other diseases of the nervous system and sense organs; Z87.820 Personal history of traumatic brain injury; Z79.899 Other long term (current) drug therapy; Z53.8 Procedure and treatment not carried out for other reasons
CPT/HCPCS: 99283; 96374; 96375 ×2; 96376; 96361 ×2; J2270; J1200; J2765

== ENCOUNTER 2019-04-17 18:12 | Emergency (ER) | payer MEDICARE ==
[2019-04-17 18:40] VITALS: TEMP 98
[2019-04-17] MEDS ORDERED: LORazepam 1 MG TAB PO STA (19:21)
[2019-04-17] MEDS ORDERED: METOCLOPRAMIDE 5 MG/ML 2 ML VIAL IVP STA (19:21)
[2019-04-17] MEDS ORDERED: diphenhydrAMINE 50 MG/ML 1 ML VIAL IVP STA (19:21)
[2019-04-17] MEDS ORDERED: SODIUM CHLORIDE 0.9% 500 ML 500 ML IV STA (19:21)
[2019-04-17] MEDS ORDERED: KETOROLAC 30 MG/ML 1 ML VIAL IVP STA (19:21)
[2019-04-17] MEDS ORDERED: CYCLOBENZAPRINE 10MG STARTER 3 TAB BTL PO STA (20:41)
--- NOTE | 2019-04-17 20:42 | ED ---
General Adult HPI - General Chief complaint: Headache Stated complaint: Migraine Time Seen by Provider: 04/17/19 18:45 Source: patient, RN notes reviewed, old records reviewed Mode of arrival: ambulatory Limitations: no limitations - History of Present Illness Initial comments: 54-year-old male patient passed no history of migraine headaches presents to ED for chief complaint migraine headaches for 3. Patient did have a cervical fusion laminectomy on 03/24/[address] [facility]. Patient reports that for the last 3 days he has had waxing and waning migraine headaches, reports that these identical to his migraine headaches in the past. Reports that they are predominantly behind his left eye. Patient also reports that he has had some mild muscle spasms in his paracervical region. Patient reports that this is what he believes is causing the headaches. Denies any reflux symptoms. Denies sudden onset, denies loss of consciousness, denies worse headache of life, denies changes in vision. Systemic: Pt denies fatigue, fever/chills, rash. Pt denies weakness, night sweats, weight loss. Neuro: Pt denies visual disturbances, syncope or pre-syncope. HEENT: Pt denies ocular discharge or irritation, otalgia, rhinorrhea, pharyngitis or notable lymphadenopathy. Cardiopulmonary: Pt denies chest pain, SOB, heart palpitations, dyspnea on exertion. Abdominal/GI: Pt denies abdominal pain, n/v/d. : Pt denies dysuria, burning w/ urination, frequency/urgency. Denies new onset urinary or bowel incontinence. MSK: Pt denies myalgia, loss of strength or function in extremities. Neuro: Pt denies new onset weakness, paresthesias. - Related Data Home Medications Medication Instructions Recorded Confirmed Cyclobenzaprine [Flexeril] 10 mg PO DAILY PRN 07/10/17 07/10/17 DULoxetine HCL [Cymbalta] 20 mg PO BID 07/10/17 07/10/17 Lisinopril [Zestril] 5 mg PO DAILY 07/10/17 07/10/17 oxyCODONE-APAP 7.5-325MG [Percocet 1 tab PO TID PRN 07/10/17 07/10/17 7.5-325 mg] Previous Rx's Medication Instructions Recorded Meclizine [Antivert] 25 mg PO Q6HR PRN #60 tab 07/11/17 Allergies Allergy/AdvReac Type Severity Reaction Status Date / Time No Known Allergies Allergy Verified 04/17/19 18:40 Review of Systems ROS Statement: Those systems with pertinent positive or pertinent negative responses have been documented in the HPI. ROS Other: All systems not noted in ROS Statement are negative. Past Medical History Past Medical History: Hypertension, Sleep Apnea/CPAP/BIPAP Additional Past Medical History / Comment(s): FREQUENT HEADACHES History of Any Multi-Drug Resistant Organisms: None Reported Past Surgical History: Back Surgery, Cholecystectomy, Orthopedic Surgery Additional Past Surgical History / Comment(s): cervical SX X2 WITH PLATE, lumbar fusion WITH 2 RODS, right shoulder tendon repair, bilateral rotator cuff, TOTAL SHOULDER SX KOFI X5, KOFI ELBOW, PAIN CLINIC, left knee Past Anesthesia/Blood Transfusion Reactions: No Reported Reaction Past Psychological History: Anxiety Smoking Status: Never smoker Past Alcohol Use History: None Reported Past Drug Use History: None Reported - Past Family History Mother Family Medical History: COPD, Dementia Father Family Medical History: Diabetes Mellitus Additional Family Medical History / Comment(s): neuropathy General Exam - General Exam Comments Initial Comments: Constitutional: NAD, AOX3, Pt has pleasant affect. HEENT: NC/AT, trachea midline, neck supple, no lymphadenopathy. Posterior pharynx non erythematous, without exudates. External ears appear normal, without discharge. Mucous membranes moist. Eyes PERRLA, EOM intact. There is no scleral icterus. No pallor noted. Cardiopulmonary: RRR, no murmurs, rubs or gallops, no JVD noted. Lungs CTAB in anterior and posterior sharp. No peripheral edema. Abdominal exam: Abdomen soft and non-distended. Abdomen non-tender to palpation in all 4 quadrants. Bowel sounds active in LLQ. No hepatosplenomegaly. No ecchymosis Neuro: CN II-XII intact. No raccon eyes, no oscar sign, no hemotympanum. No cervical spinal tenderness. Rpt Neurologic exam within normal limits. No focal temporal tenderness, no skin changes, no palpable cord. MSK: Neck examined, no signs of infection. No posterior calf tenderness bilaterally, homans sign negative bilaterally. Posterior tibialis and radial pulse +2 bilaterally. Sensation intact in upper and lower extremities. Full active ROM in upper and lower extremities, 5/5 stregnth. Limitations: no limitations Course Vital Signs 04/17/19 18:36 Temperature 98 F Pulse Rate 67 Respiratory 18 Rate Blood Pressure 146/100 O2 Sat by Pulse 97 Oximetry Medical Decision Making - Medical Decision Making 54-year-old male patient presents to ED for chief complaint of waxing and waning migraine headache. Patient vital signs are stable, afebrile. Physical exam the intact neurologic exam. Discussed advanced imaging of brain. Patient like to decline. Patient headache significantly improved with headache cocktail. Patient was discharged to follow up with primary care provider will return to ER if condition worsens. Case discussed with Dr. Loera. Disposition Clinical Impression: Migraine headache Disposition: HOME SELF-CARE Condition: Stable Instructions (If sedation given, give patient instructions): Acute Headache (ED) Additional Instructions: Follow-up with primary care provider tomorrow. Return to ER if condition worsens. Use muscle relaxer as needed for muscle spasm. May take up to one pill of flexeril every 8 hours as needed. Is patient prescribed a controlled substance at d/c from ED?: No Referrals: Russel Phillips MD [Primary Care Provider] - 1-2 days
[2019-04-17 20:55] VITALS: BP 160/90; PULSE 71; RESP 16
== END 2019-04-17 20:57 | disposition home or self-care (01) ==
LOC: EC 18:12
DX: G40.909 Epilepsy, unspecified, not intractable, without status epilepticus (principal); R25.2 Cramp and spasm; I10 Essential (primary) hypertension; F41.9 Anxiety disorder, unspecified; G47.30 Sleep apnea, unspecified; Z79.899 Other long term (current) drug therapy; Z98.1 Arthrodesis status; Z96.698 Presence of other orthopedic joint implants; Z99.89 Dependence on other enabling machines and devices; Z53.8 Procedure and treatment not carried out for other reasons
CPT/HCPCS: 99283; 96374; 96375; J2765; J1885

== ENCOUNTER → 2019-05-29 | Outpatient (CLI) | payer MEDICARE ==
--- NOTE | 2019-05-29 13:04 | FL ---
EXAMINATION TYPE: FL barium swallow DATE OF EXAM: 05/29/2019 COMPARISON: None HISTORY: Difficulty swallowing worse with solids TECHNIQUE: Double air-contrast technique is utilized to evaluate the esophagus. FINDINGS: Esophagus dilates to normal caliber has normal contour to the gastroesophageal junction. Ga stroesophageal junction opens to normal caliber. No Zenker's diverticulum is evident. Postsurgical ch anges are present from anterior cervical fusion. There is complete stripping of the esophageal bolus the horizontal drinking position. No secondary or tertiary contractions are evident. IMPRESSION: 1. No suspicious abnormality to account for dysphasia.
== END | disposition home or self-care (01) ==
LOC: RADUSWWP 09:41
PROVIDERS: ATTEND Otolaryngology
DX: R13.10 Dysphagia, unspecified (principal)
CPT/HCPCS: 74220

== ENCOUNTER → 2020-10-24 | Outpatient (CLI) | payer MEDICARE ==
[2020-10-24 08:51] VITALS: BP 167/89; PULSE 58; RESP 18; TEMP 97.8
--- NOTE | 2020-10-24 09:27 | P.PAINCN ---
History of Present Illness - Reason for Consult Consult date: 10/24/20 - History of Present Illness This is 55 years old male with a chronic history of severe neck pain, midback pain, and low back pain, he had multiple surgical interventions on his neck (cervical fusion surgery and C3 to C6 ) patient had multiple lumbar surgery (laminectomy and fusion ) patient continued to have severe back and neck pain and mid back pain, likely most of his pain in the mid back area, interfere with the quality of life and prevented him from doing any activities, patient was on chronic opioid therapy, currently he is on Percocet 5/325 2 tablets every 6 hours, and he denies any side effects of the medication, tried different medications in the past without any significant benefit, patient tried NSAID he tried the gabapentin, any significant benefit and he had massage therapy, he continued to have severe pain the pain is constant interfere with the quality of life, he denies any motor or sensory deficit he denies any fever or night sweats, denies any change in the bowel movement or urination Past Medical History Past Medical History: Deep Vein Thrombosis (DVT), Osteoarthritis (OA), Sleep Apnea/CPAP/BIPAP Additional Past Medical History / Comment(s): FREQUENT HEADACHES, Hx of closed head injury early , chronic pain back,neck,shoulders, prev Hx of HTN no current meds r/t 30lb wt loss, no current CPAP use, prev pain clinic injections, hx of DVT at age 15, no current issues, hx of hematoma after back sx, infection with wound vac and PICC line History of Any Multi-Drug Resistant Organisms: None Reported Past Surgical History: Back Surgery, Cholecystectomy, Joint Replacement, Orthopedic Surgery Additional Past Surgical History / Comment(s): cervical SX X3 WITH PLATE, lumbar fusion WITH 2 RODS 2005, and 03/2020 removal of hardware, and rebuild, right shoulder tendon repair, bilateral rotator cuff, TOTAL SHOULDER SX KOFI X7, KOFI ELBOW, PAIN CLINIC, left knee ACL repair, bicep tendon tear repair x2, kofi cataracts, PICC line Past Anesthesia/Blood Transfusion Reactions: No Reported Reaction Smoking Status: Former smoker - Past Family History Mother Family Medical History: COPD, Dementia Father Family Medical History: Diabetes Mellitus Additional Family Medical History / Comment(s): neuropathy Medications and Allergies Home Medications Medication Instructions Recorded Confirmed Type oxyCODONE-APAP 5-325MG [Percocet 2 tab PO Q6H PRN 10/21/20 10/21/20 History 5-325 mg] Allergies Allergy/AdvReac Type Severity Reaction Status Date / Time No Known Allergies Allergy Verified 10/21/20 15:48 Physical Exam Vitals: Vital Signs Temp Pulse Resp BP Pulse Ox 10/24/20 08:43 97.8 F 58 L 18 167/89 96 Physical Examinations : -Constitutiona : Cooperative , not in acute distress . -HEENT : nech : supple , no Lymphadenopathy , normal thyroid size . : eyes : no ptosis , no icterus, no photophobia . - neurologic : Cranial nerve II to XII intact , no focal neurological deffecit . -psychatric : alert , oriented X 3 , appropriate affect , intact judgment and insight . -Lymphatic : no Lymphadenopathy . - musculoskeltal : Cervical Spine motor stregnth in the deltoid and bi ceps, normal right side , normal Left side motor stregnth biceps and the wrist extensors normal right side ,normal left side . motor stregnth in the triceps muscle . normal Right side , normal Left side deep tendon reflexes normal at the biceps , normal at Brachioradialis , normal at triceps. cervical facet loading test: Positive Bilaterally Spurling test= positive Right , positive left. Neck distraction test= positive Right , positive left. Quinn sign= positive right, positive left . Thoracic spine= The facet loading test and T7 to T 10 Flexion extension and rotation of the torso associated with severe mid back pain Lumber spine moter stegnth lower extremities ,thigh and legs 5/5 Right side , 5/5 Left side deep tendon reflexes : normal Knee Jerk , normal ankle Jerk lumber facet Loading Test =positive Right , positive Left Range of motion of the lumbar spine Flexion 30 degrees, extension 10 degrees strait leg raising test = positive at degree Fabere test= positive Right , and positive LT . Sever tenderness over the Sacroiliac joint on the Right , and Left sides Gaenslen test= positive right ,and positive left . Seated flexion test= positive right ,and positive Left . Distraction test= positive bilaterally Results Comments: Computed tomography scan of the cervical spine= previous fusion Assessment and Plan Plan: Assessment and plan=1-cervical spondylosis and cervical facet arthropathy 2-thoracic spondylosis with thoracic facet arthropathy. 3-sacroiliitis. 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 5-Chronic and current use of high-risk medication ( opioid ). Assessment and plan= Diagnoses, prognosis, treatment options, including but not limited to physical therapy, medication management, interventional therapies, and surgery, were discussed with the patient All the questions answered The narcotic consent was signed and patient agreed and understood the side effects and complications of opioid treatment. Patient signed the narcotic agreement, and was orally counseled, not to overuse, not to abuse, not to Divert , not tp sell pain medication, and to take it as prescribed only, Patient was counseled not to drive or operate heavy equipment while using narcotic medication, and advised not to use alcohol or any Illicit drugs while using the narcotis. understanding that lack of compliance with any of the above instructions, will likely to cause discharge from, the pain service, not to renew his narcotic prescriptions MAPS Reviwed and it was apropriate . Medication managements= patient will be given prescription refills for Percocet 10/325 every 6 hours dispense 120 with one refill, and drug screen was given today Description signed narcotic agreement . interventions = he could benefit from diagnostic medial branch block thoracic area T7 , T8 ,T9 bilaterally ( clinically),(levels will be determined the day of the procedure depending on the fluoroscopy guidance) I spent extensive time with the patient and review of her records. Medications seem to be offering good relief. There is no signs of any misuse or diversion. I have directed her to her neurologist for further evaluation, none of these issues or new and I believe she has had extensive workup regarding these issues. I do also believe that some of these issues are related to her experiences with her son and likely due to her own anxiety regarding medical problems. Unfortunately his pain medications offer her some benefit and are unlikely to offer long-term relief but in the meantime do offer some benefit so we'll continue those medications. We will prescribe these medications for 2 months time. I discussed with the patient that these medications need to be used as prescribed as misuse of medication can cause significant dysfunction and possibly . I have spent 35 minutes on patient care today. The time was used to review the medical records including relevant Prescription history (MAPs), review of the available imaging, evaluation and examination of the patient, coordination of care with the medical staff and if applicable referring physicians, as well as creation of the medical record. Maps were checked and appropriate, opioid start talking form is on file and updated, urine drug screens of been appropriate and have been reviewed. , Time with Patient: Greater than 30 PQRS Measure Charge Sheet Measure #130: Documentation of Current Meds in Medical Chart: Patient's medications documented in chart Measure #226: Tobacco Use: Screen & Cessation Intervention: Pt not a tobacco user Measure #111: Pneumonia Vaccination: Pneumococcal vaccine NOT administered or previously given Measure #47: Advance Care Plan: Advance care planning discussed & documented, pt chose/unable to give Measure #412: Opioid Treatment Agreement: Documented signed opioid trtmnt agreemnt min once during opioid trtmnt Measure #408: Opioid Therapy Follow-up Evaluation: Patient had f/u eval minimum every 3 months during opioid therapy Measure #317: Preventitive Care & Scrn High Bld Press & F/U: Pre-hypertensive or hypertensive BP documented, pt will f/u with PCP Measure #128: Body Mass Index (BMI) Screening & Follow-up: BMI documented ABOVE normal parameters - f/u documented Measure #131: Pain Assessment & Follow-up: Pain positive & plan documented, F ollow-up scheduled Measure #431: Unhealthy Alcohol Use Preventative Care & Scrn: Patient not identified as an unhealthy alcohol user PQRS Narrative: Smoking Status Never smoker Blood Pressure 167/89 Pain Intensity [Neck] 6 Scale Used Numeric (1 - 10) Hx Alcohol Use (MH) No Home Medications: Ambulatory Orders oxyCODONE-APAP 5-325MG [Percocet 5-325 mg] 2 tab PO Q6H PRN 10/21/20
== END ==
LOC: PNWHC3 08:05
PROVIDERS: ATTEND Specialist
DX: M47.812 Spondylosis without myelopathy or radiculopathy, cervical region (principal); M47.814 Spondylosis without myelopathy or radiculopathy, thoracic region; M46.1 Sacroiliitis, not elsewhere classified; M96.1 Postlaminectomy syndrome, not elsewhere classified; M19.90 Unspecified osteoarthritis, unspecified site; I10 Essential (primary) hypertension; Z86.718 Personal history of other venous thrombosis and embolism; Z79.891 Long term (current) use of opiate analgesic; Z87.891 Personal history of nicotine dependence
CPT/HCPCS: 80307; G0482; G0463; 99212

== ENCOUNTER → 2020-11-04 | Outpatient (CLI) | payer MEDICARE ==
--- NOTE | 2020-11-07 15:32 | CT ---
EXAMINATION TYPE: CT urogram wo/w con DATE OF EXAM: 11/04/2020 COMPARISON: CT abdomen pelvis 10/06/2015 HISTORY: Hematuria. CT DLP: 3080 mGycm, Automated Exposure Control for Dose Reduction was Utilized. CONTRAST: CT scan of the abdomen and pelvis is performed with oral and without and with IV Contrast, patient in jected with 100 mL of Isovue M300. FINDINGS: Common origin celiac axis and superior mesenteric artery noted incidentally LUNG BASES: No significant abnormality is appreciated. LIVER/GB: Patient is post cholecystectomy.. PANCREAS: No significant abnormality is seen. SPLEEN: Scattered calcifications are present likely due to old granulomatous disease.. ADRENALS: No significant abnormality is seen. KIDNEYS: There is no evident renal calculus. The previously identified cystic focus the midpole the l eft kidney towards the renal pelvis is again seen and measures approximately 2.2 cm in greatest dimen silvano increased from approximately 1.5 cm on prior. The ureters show normal course and caliber. The pr ostate is enlarged.. BOWEL: No diverticular changes associated with the sigmoid colon. The prostate is enlarged. Prostate shows a somewhat irregular appearance and shows an inferior impres silvano on the urinary bladder, some low density is present, the gland is somewhat heterogeneous in appe arance gross abnormality seen. LYMPH NODES: No greater than 1cm abdominal or pelvic lymph nodes are appreciated. OSSEOUS STRUCTURES: Artifact is present due to patient's postop change in the lumbar spine. OTHER: N o significant additional abnormality is seen. IMPRESSION: Irregular appearance of the prostate gland, correlate for any prior surgical history, the prostate is enlarged, difficult to exclude underlying mass. Cortical cyst left kidney. Findings abov e.
== END | disposition home or self-care (01) ==
LOC: RADCTMAIN 15:53
PROVIDERS: ATTEND Urology
DX: N28.1 Cyst of kidney, acquired (principal); N40.0 Benign prostatic hyperplasia without lower urinary tract symptoms
CPT/HCPCS: 74178; 74400; Q9967

== ENCOUNTER 2020-11-18 06:03 | Day surgery (SDC) | payer MEDICARE ==
[~2020-11-18 06:03] MED LIST: LACTATED RINGERS 1,000 ML IV SCH
[2020-11-18 06:17] VITALS: TEMP 97.8
[2020-11-18] MEDS ORDERED: LIDOCAINE 1% (10MG/ML) FOR IV START INTRADERMA ONE (06:23)
[2020-11-18] MEDS ORDERED: LACTATED RINGERS 1,000 ML IV ONE (06:23)
[2020-11-18] MEDS ORDERED: fentaNYL (PF) 50 MCG/ML 2 ML AMP ONE (07:11)
[2020-11-18] MEDS ORDERED: MIDAZOLAM 2 MG/2 ML VIAL ONE (07:11)
[2020-11-18] MEDS ORDERED: TRIAMCINOLONE ACETONIDE 40 MG/ML 1 ML VIAL ONE (07:11)
[2020-11-18] MEDS ORDERED: ROPIVACAINE 5MG/ML 20ML VIAL ONE (07:11)
[2020-11-18] MEDS ORDERED: IV FLUID CONTINUATION 1,000 ML IV ONE (07:32)
--- NOTE | 2020-11-18 07:34 | P.PCN ---
Date of Procedure: 11/18/20 Surgeon: Reyna Donato Condition: stable Disposition: PACU Description of Procedure: Medical diagnosis: Thoracic spondylosis without myelopathy Name of procedure: Bilateral thoracic medial branch block under fluoroscopic guidance for levels T7,T8, and T9 Anesthesia: Local with lidocaine 1% and IV moderate conscious sedation by the anesthesia Department Physician:Reyna Donato MD Description of procedure: The patient was seen in the preop holding area consent was obtained then she was brought into the procedure when placed in prone position. Skin was prepped with ChloraPrep and draped in a sterile manner. Lidocaine 1% was used to numb the skin up at the target points that were chosen as follows: The superio- lateral angle of each transverse process starting from T7, to T9 was identified on the right oblique view of fluoroscopy. I then used 22-gauge 3-1/2 inch Quincke spinal needle to go through the skin and to contact bone at the above-mentioned target points. I then injected 1 mL of a solution made up of 5 MLS of ropivacaine 0.5% and 40 mg of Kenalog. The needles then were taken out intact. The patient tolerated procedure well. The patient was transferred to PACU in stable condition with no complications. The picture of needle placement was saved to the C-arm machine.
[2020-11-18 07:49] VITALS: BP 134/75; PULSE 51; RESP 18
--- NOTE | 2020-11-18 09:47 | FL ---
EXAMINATION TYPE: FL guided pain mgmt statistic DATE OF EXAM: 11/18/2020 HISTORY: Fluoroscopy time 14 seconds of fluoroscopy provided. IMPRESSION: 1. Fluoroscopy time.
== END 2020-11-18 08:17 | disposition home or self-care (01) ==
LOC: ORPAIN 06:03
PROVIDERS: ATTEND Anesthesiology
DX: M47.814 Spondylosis without myelopathy or radiculopathy, thoracic region (principal); G47.33 Obstructive sleep apnea (adult) (pediatric); Z87.891 Personal history of nicotine dependence; K21.9 Gastro-esophageal reflux disease without esophagitis; Z79.891 Long term (current) use of opiate analgesic; Z79.899 Other long term (current) drug therapy; Z98.1 Arthrodesis status
CPT/HCPCS: 64490; 64491; J2250; J3301; J3010; J2795

== ENCOUNTER → 2020-12-28 | Outpatient (CLI) | payer MEDICARE ==
[2020-12-28 08:09] VITALS: BP 144/89; PULSE 67; RESP 18; TEMP 98.4
--- NOTE | 2020-12-28 08:27 | P.PN ---
Subjective Progress Note Date: 12/28/20 This is a follow-up visit for this 55 years old male, and history of severe neck pain and mid back pain and low back pain, he is the most with cervical and thoracic spondylosis with facet arthropathy, and failed back surgery syndrome lumbar area and bilateral sacroiliitis, is currently on Percocet 10/325 every 6 hours when necessary, he was taking amitriptyline 25 mg daily at bedtime and he stopped using it because he had side effects from it, recently we did diagnostic medial branch blocks thoracic area at T7, T8, T9 bilaterally and this helped his mid back pain significantly, he had 80% improvement of his mid back pain for 2 days, patient denies any motor or sensory deficit he denies any fever or night sweats, denies any suicidal ideation, denies any change in the bowel movement or urination, he shouldn't drive and sit in the past and he tried gabapentin and he tried muscle relaxant and he had side effects from these medications Physical Examinations : -Constitutiona : Cooperative , not in acute distress . -HEENT : nech : supple , no Lymphadenopathy , normal thyroid size . : eyes : no ptosis , no icterus, no photophobia . - neurologic : Cranial nerve II to XII intact , no focal neurological deffecit . -psychatric : alert , oriented X 3 , appropriate affect , intact judgment and insight . -Lymphatic : no Lymphadenopathy . - musculoskeltal : Cervical Spine motor stregnth in the deltoid and biceps, normal right side , normal Left side motor stregnth biceps and the wrist extensors normal right side ,normal left side . motor stregnth in the triceps muscle . normal Right side , normal Left side deep tendon reflexes normal at the biceps , normal at Brachioradialis , normal at triceps. cervical facet loading test: Positive Bilaterally Spurling test= positive Right , positive left. Neck distraction test= positive Right , positive left. Quinn sign= positive right, positive left . Thoracic spine= The facet loading test and T7 to T 10 Flexion extension and rotation of the torso associated with severe mid back pain Lumber spine moter stegnth lower extremities ,thigh and legs 5/5 Right side , 5/5 Left side deep tendon reflexes : normal Knee Jerk , normal ankle Jerk lumber facet Loading Test =positive Right , positive Left Range of motion of the lumbar spine Flexion 30 degrees, extension 10 degrees strait leg raising test = positive at degree Fabere test= positive Right , and positive LT . Sever tenderness over the Sacroiliac joint on the Right , and Left sides Gaenslen test= positive right ,and positive left . Seated flexion test= positive right ,and positive Left . Distraction test= positive bilaterally Results: Computed tomography scan of the cervical spine= previous fusion Assessment and plan=1-cervical spondylosis and cervical facet arthropathy 2-thoracic spondylosis with thoracic facet arthropathy. 3-sacroiliitis. 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 5-Chronic and current use of high-risk medication ( opioid ). Assessment and plan= Diagnoses, prognosis, treatment options, including but not limited to physical therapy, medication management, interventional therapies, and surgery, were discussed with the patient All the questions answered The narcotic consent was signed and patient agreed and understood the side effects and complications of opioid treatment. Patient signed the narcotic agreement, and was orally counseled, not to overuse, not to abuse, not to Divert , not tp sell pain medication, and to take it as prescribed only, Patient was counseled not to drive or operate heavy equipment while using narcotic medication, and advised not to use alcohol or any Illicit drugs while using the narcotis. understanding that lack of compliance with any of the above instructions, will likely to cause discharge from, the pain service, not to renew his narcotic prescriptions MAPS Reviwed and it was apropriate . Medication managements= patient will be given prescription refills for Percocet 10/325 every 6 hours dispense 120 with one refill, and drug screen reviewed and it was appropriate He already signed narcotic agreement . interventions = schedual patient for second diagnostic medial branch block thoracic area T7 , T8 ,T9 bilaterally . Maps were checked and appropriate, opioid start talking form is on file and updated, urine drug screens of been appropriate and have been reviewed. , PQRS Measure Charge Sheet Measure #130: Documentation of Current Meds in Medical Chart: Patient's medications documented in chart Measure #226: Tobacco Use: Screen & Cessation Intervention: Pt not a tobacco user Measure #111: Pneumonia Vaccination: Pneumococcal vaccine NOT administered or previously given Measure #47: Advance Care Plan: Advance care planning discussed & documented, pt chose/unable to give Measure #412: Opioid Treatment Agreement: Documented signed opioid trtmnt agreemnt min once during opioid trtmnt Measure #408: Opioid Therapy Follow-up Evaluation: Patient had f/u eval minimum every 3 months during opioid therapy Measure #317: Preventitive Care & Scrn High Bld Press & F/U: Pre-hypertensive or hypertensive BP documented, pt will f/u with PCP Measure #128: Body Mass Index (BMI) Screening & Follow-up: BMI documented ABOVE normal parameters - f/u documented Measure #131: Pain Assessment & Follow-up: Pain positive & plan documented, Follow-up scheduled Measure #431: Unhealthy Alcohol Use Preventative Care & Scrn: Patient not identified as an unhealthy alcohol user PQRS Narrative: Objective - Vital Signs Vital signs: Vital Signs Temp 98.4 F 12/28/20 08:06 Pulse 67 12/28/20 08:06 Resp 18 12/28/20 08:06 BP 144/89 12/28/20 08:06 Pulse Ox 97 12/28/20 08:06
== END ==
LOC: PNWHC3 08:01
PROVIDERS: ATTEND Specialist
DX: M47.12 Other spondylosis with myelopathy, cervical region (principal); M47.14 Other spondylosis with myelopathy, thoracic region; M46.1 Sacroiliitis, not elsewhere classified; M96.1 Postlaminectomy syndrome, not elsewhere classified; Z79.891 Long term (current) use of opiate analgesic
CPT/HCPCS: 99211

== ENCOUNTER 2021-01-26 11:27 | Day surgery (SDC) | payer MEDICARE ==
[2021-01-26 12:05] VITALS: RESP 16; TEMP 97.6
[2021-01-26] MEDS ORDERED: ROPIVACAINE 5MG/ML 20ML VIAL ONE (12:50)
[2021-01-26] MEDS ORDERED: TRIAMCINOLONE ACETONIDE 40 MG/ML 1 ML VIAL ONE (12:50)
--- NOTE | 2021-01-26 13:10 | P.PCN ---
Date of Procedure: 01/26/21 Surgeon: Reyna Donato Description of Procedure: Surgeon: Reyna Donato Condition: stable Disposition: PACU Description of Procedure: Medical diagnosis: Thoracic spondylosis without myelopathy Name of procedure: Bilateral thoracic medial branch block under fluoroscopic guidance for levels T7,T8, and T9 Anesthesia: Local only with lidocaine 1% Physician:Reyna Donato MD Description of procedure: The patient was seen in the preop holding area consent was obtained then she was brought into the procedure when placed in prone position. Skin was prepped with ChloraPrep and draped in a sterile manner. Lidocaine 1% was used to numb the skin up at the target points that were chosen as follows: The superio- lateral angle of each transverse process starting from T7, to T9 was identified on the AP view of fluoroscopy. I then used 22-gauge 3- 1/2 inch Quincke spinal needle to go through the skin and to contact bone at the above-mentioned target points. I then injected 1 mL of a solution made up of 3 MLS of ropivacaine 0.5% and 20 mg of Kenalog. The needles then were taken out intact. The procedure was repeated on the left side in the same manner. The patient tolerated procedure well. The patient was transferred to PACU in stable condition with no complications. A picture of needle placement was saved to the C-arm machine.
[2021-01-26 13:35] VITALS: BP 144/86; PULSE 50
--- NOTE | 2021-01-26 14:05 | FL ---
EXAMINATION TYPE: FL guided pain mgmt statistic DATE OF EXAM: 01/26/2021 HISTORY: Fluoroscopy time 36 seconds of fluoroscopy provided. IMPRESSION: 1. Fluoroscopy time.
== END 2021-01-26 13:40 | disposition home or self-care (01) ==
LOC: ORPAIN 11:27
PROVIDERS: ATTEND Anesthesiology
DX: M47.814 Spondylosis without myelopathy or radiculopathy, thoracic region (principal)
CPT/HCPCS: 64490; 64491; J3301; J2795

== ENCOUNTER → 2021-02-22 | Outpatient (CLI) | payer MEDICARE ==
[2021-02-22 08:12] VITALS: BP 148/93; PULSE 65; RESP 18; TEMP 97.5
--- NOTE | 2021-02-22 08:27 | P.PN ---
Subjective Progress Note Date: 02/22/21 Aaron is a 55-year-old male presenting to clinic today for follow-up appointment after his second bilateral thoracic medial branch bike at T7 8 and T8 9. He reports that several days after the procedure he had greater than 80% pain relief. Reduction and plating allowed him to increase his daily activities with significantly less pain. However, after several days his pain beginning to return. She had pain in his bed back region that radiate up to his neck causing him headaches. He reports his pain is worse with twisting. Pain is better with rest, medications, and interventions. He rates his pain as average as 6 out of 10 on a 0-to-10 scale. He would like to move forward with the radiofrequency ablation at bilateral T7 8 and T8 9. He denies any adverse effects or complications after his procedure. Objective - Vital Signs Vital signs: Vital Signs Temp 97.5 F L 02/22/21 08:07 Pulse 65 02/22/21 08:07 Resp 18 02/22/21 08:07 BP 148/93 02/22/21 08:07 Pulse Ox 97 02/22/21 08:07 Intake & Output 02/21/21 02/22/21 02/22/21 18:59 06:59 18:59 Weight 83.461 kg - Exam Physical Examinations : -Constitutiona : Cooperative , not in acute distress . -HEENT : nech : supple , no Lymphadenopathy , normal thyroid size . : eyes : no ptosis , no icterus, no photophobia . - neurologic : Cranial nerve II to XII intact , no focal neurological deffecit . -psychatric : alert , oriented X 3 , appropriate affect , intact judgment and insight . -Lymphatic : no Lymphadenopathy . - musculoskeltal : Cervical Spine motor stregnth in the deltoid and biceps, normal right side , normal Left side motor stregnth biceps and the wrist extensors normal right side ,normal left side . motor stregnth in the triceps muscle . normal Right side , normal Left side deep tendon reflexes normal at the biceps , normal at Brachioradialis , normal at triceps. cervical facet loading test: Positive Bilaterally Spurling test= positive Right , positive left. Neck distraction test= positive Right , positive left. Quinn sign= negative Thoracic spine Positive facet loading in the thoracic region Moderate to severe pain with palpation of the thoracic region Lumber spine moter stegnth lower extremities ,thigh and legs 5/5 Right side , 5/5 Left side deep tendon reflexes : normal Knee Jerk , normal ankle Jerk lumber facet Loading Test =positive Right , positive Left Range of motion of the lumbar spine Flexion 30 degrees, extension 10 degrees strait leg raising test = positive at degree Fabere test= positive Right , and positive LT . Sever tenderness over the Sacroiliac joint on the Right , and Left sides Gaenslen test= positive right ,and positive left . Seated flexion test= positive right ,and positive Left . Distraction test= positive bilaterally Sacroiliac compression test= positive bilaterally Assessment and Plan Assessment: Assessment and plan Assessment: 1-cervical spondylosis and cervical facet arthropathy 2-thoracic spondylosis with thoracic facet arthropathy. 3-sacroiliitis. 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 5-Chronic and current use of high-risk medication ( opioid ). Diagnoses, prognosis, treatment options, including but not limited to physical therapy, medication management, interventional therapies, and surgery, were discussed with the patient All the questions answered The narcotic consent was signed and patient agreed and understood the side effects and complications of opioid treatment. Patient signed the narcotic agreement, and was orally counseled, not to overuse, not to abuse, not to Divert , not tp sell pain medication, and to take it as prescribed only, Patient was counseled not to drive or operate heavy equipment while using narcotic medication, and advised not to use alcohol or any Illicit drugs while using the narcotis. understanding that lack of compliance with any of the above instructions, will likely to cause discharge from, the pain service, not to renew his narcotic prescriptions [facility] Reviwed and it was apropriate . He already signed narcotic agreement . interventions = schedule patient for bilateral thoracic radiofrequency ablation at T7 , T8 ,T9 bilaterally . - PQRS measures = - Patient's medications are documented in the chart. -Tobacco use is negative -Patient's has not received pneumococcal vaccine. -Advanced care planning discussed, patient not eligible. -Opiate contract signed. -Pain positive and follow-up visit/procedure is scheduled. -Patient's blood pressure measured [ 148/93 ] , and documented in the record ,and patient will follow up with the primary care. -Patient was not identified as an unhealthy alcohol user Time with Patient: Less than 30
== END ==
LOC: PNWHC3 08:01
PROVIDERS: ATTEND Student in an Organized Health Care Education/Training Program
DX: M47.812 Spondylosis without myelopathy or radiculopathy, cervical region (principal); M47.814 Spondylosis without myelopathy or radiculopathy, thoracic region; M46.1 Sacroiliitis, not elsewhere classified; M96.1 Postlaminectomy syndrome, not elsewhere classified; Z79.891 Long term (current) use of opiate analgesic
CPT/HCPCS: 99211

== ENCOUNTER 2021-03-30 13:18 | Emergency (ER) | payer MEDICARE ==
[2021-03-30] MEDS ORDERED: SODIUM CHLORIDE 0.9% 1,000 ML IV STA (14:05)
[2021-03-30] MEDS ORDERED: ACETAMINOPHEN TAB 325 MG TAB PO STA (14:07)
--- NOTE | 2021-03-30 14:12 | ED ---
General Adult HPI - General Chief complaint: Head Injury Stated complaint: Fall/head injury Time Seen by Provider: 03/30/21 14:00 Source: patient, family, RN notes reviewed, old records reviewed Mode of arrival: wheelchair Limitations: no limitations - History of Present Illness Initial comments: 56-year-old well-appearing male, alert and oriented 4, presents to the emergency room with the family member complaining of falling in the bathroom yesterday. He states that he fell landing on his tailbone and then backward hitting his head. He denies loss of consciousness. He denies any blood thinners. He does have a history of multiple back surgeries with a lumbar fusion. Patient states that when he was in the bathroom yesterday his legs just gave out causing him to fall. He states that this has happened to him before after his back fusion. His states that yesterday he was complaining of some dizziness as well. He did have venous procedure done on varicose veins last week to his legs. He also has a headache frontal with chills and a low- grade fever. He denies cough, vomiting or diarrhea but does have a sore throat. He has a history of DVT, osteoarthritis, headaches, hypertension, back surgery and closed head injury. -: days(s) (2) Location: head, back (tailbone) Radiation: distal (blle) Severity scale (1-10): 10 Quality: constant Consistency: constant Improves with: none Worsens with: other (ambulation) Associated Symptoms: fever/chills, headaches, loss of appetite, malaise, weakness Treatments Prior to Arrival: none - Related Data Home Medications Medication Instructions Recorded Confirmed Fluticasone Nasal Page [Flonase 1 spray EA NOSTRIL BID 03/30/21 03/30/21 Nasal Page] Tamsulosin [Flomax] 0.4 mg PO HS 03/30/21 03/30/21 oxyCODONE HCL/ACETAMINOPHEN 0.5 tab PO Q3H 03/30/21 03/30/21 [Percocet 10-325 mg] Previous Rx's Medication Instructions Recorded Amoxicillin/Potassium Clav 1 tab PO Q12HR 14 Days #28 tab 03/30/21 [Augmentin 875-125 Tablet] Allergies Allergy/AdvReac Type Severity Reaction Status Date / Time No Known Allergies Allergy Verified 03/30/21 15:54 Review of Systems ROS Statement: Those systems with pertinent positive or pertinent negative responses have been documented in the HPI. ROS Other: All systems not noted in ROS Statement are negative. Past Medical History Past Medical History: Deep Vein Thrombosis (DVT), Osteoarthritis (OA), Sleep Apnea/CPAP/BIPAP Additional Past Medical History / Comment(s): FREQUENT HEADACHES, Hx of closed head injury early , chronic pain back,neck,shoulders, prev Hx of HTN no current meds r/t 30lb wt loss, no current CPAP use, prev pain clinic injections, hx of DVT at age 15, no current issues, hx of hematoma after back sx, infection with wound vac and PICC line History of Any Multi-Drug Resistant Organisms: None Reported Past Surgical History: Back Surgery, Cholecystectomy, Joint Replacement, Orthopedic Surgery Additional Past Surgical History / Comment(s): cervical SX X3 WITH PLATE, lumbar fusion WITH 2 RODS 2005, and 03/2020 removal of hardware, and rebuild, right shoulder tendon repair, bilateral rotator cuff, TOTAL SHOULDER SX KOFI X7, KOFI ELBOW, PAIN CLINIC, left knee ACL repair, bicep tendon tear repair x2, kofi cataracts, PICC line Past Anesthesia/Blood Transfusion Reactions: No Reported Reaction Past Psychological History: No Psychological Hx Reported Smoking Status: Former smoker Past Alcohol Use History: Rare Past Drug Use History: None Reported - Past Family History Mother Family Medical History: COPD, Dementia Father Family Medical History: Diabetes Mellitus Additional Family Medical History / Comment(s): neuropathy General Exam Limitations: no limitations General appearance: alert, in no apparent distress Head exam: Present: atraumatic, normocephalic, normal inspection Eye exam: Present: normal appearance, EOMI. Absent: scleral icterus, conjunctival injection, nystagmus, periorbital swelling, periorbital tenderness Pupils: Present: normal accommodation ENT exam: Present: normal exam, normal oropharynx, mucous membranes moist Neck exam: Present: normal inspection, full ROM. Absent: tenderness, meningismus, lymphadenopathy, thyromegaly Respiratory exam: Present: normal lung sounds bilaterally. Absent: respiratory distress, wheezes, rales, rhonchi, stridor Cardiovascular Exam: Present: regular rate, normal rhythm, normal heart sounds. Absent: systolic murmur, diastolic murmur, rubs, gallop, clicks GI/Abdominal exam: Present: soft, normal bowel sounds. Absent: distended, tenderness, guarding, rebound, rigid Extremities exam: Present: normal inspection, full ROM, normal capillary refill. Absent: tenderness, pedal edema, joint swelling, calf tenderness Back exam: Present: normal inspection, tenderness (Sacral). Absent: CVA tenderness (R), CVA tenderness (L), rash noted Expanded Back exam: Absent: saddle anesthesia Back exam: Positive Straight Leg Raise: Right Neurological exam: Present: alert, oriented X3, normal gait (Slowly limited by pain) Expanded Patient oriented to: Present: person, place, time Speech: Present: fluid speech Eye Response: (4) open spontaneously Motor Response: (6) obeys commands Verbal Response: (5) oriented [place] Total: 15 Psychiatric exam: Present: normal affect, normal mood Skin exam: Present: warm, dry, intact, normal color. Absent: rash, cyanosis, diaphoretic, petechiae, pallor Course Vital Signs 03/30/21 03/30/21 13:35 16:49 Temperature 100.8 F H 10.7 F L Pulse Rate 96 69 Respiratory 16 18 Rate Blood Pressure 108/83 127/87 O2 Sat by Pulse 97 100 Oximetry EKG Findings - EKG Results: EKG: sinus rhythm (Ventricular rate 86, WA interval 0.154, QRS 0.82, QTC 0.411) Medical Decision Making - Medical Decision Making 56-year-old well-appearing male, alert and oriented 4, presents to the emergency room after falling in the bathroom yesterday. He states that he fell landing on his tailbone and then backward hitting his head. He denies loss of consciousness. He denies any blood thinners. He does have a history of multiple back surgeries with a lumbar fusion. Patient states that when he was in the bathroom yesterday his legs just gave out causing him to fall. He states that this has happened to him before after his back fusion. He also has a frontal headachel with chills and a low-grade fever. He denies cough, vomiting or diarrhea but does have a sore throat. X-ray of the lumbar sacral spine show no acute fracture or subluxation. Laminectomy present at L5 was seen blocks present at L4 5 and L5-S1. There is a displaced screw present on the right as noted on previous x-rays. X-ray of the pelvis shows no acute fracture dislocation with the same screw displaced noted on previous CT November 04 2020. Chest x-ray shows no acute cardiopulmonary process. No focal pneumonia. There is no significant leukocytosis. Electrolytes are unremarkable. Troponin is negative at 0.012. EKG shows no dilatation. Coronavirus testing is negative. Urine is clear of blood. CT of the brain without contrast shows no abnormality. There is likely mixed retention cyst in the maxillary antrum left maxillary sinus. He is able to ambulate in the mak with steady gait. He is feeling better after the tylenol, morphine and IV fluids. Patient did complain of frontal headache and chills with a low-grade fever. He will be treated for sinusitis and follow-up with his primary care doctor. Case discussed with Dr. Meade - Lab Data Result diagrams: 03/30/21 14:26 03/30/21 14:26 Lab Results 03/30/21 03/30/21 03/30/21 Range/Units 13:53 14:26 14:26 WBC 11.0 H (3.8-10.6) k/uL RBC 4.93 (4.30-5.90) m/uL Hgb 15.1 (13.0-17.5) gm/dL Hct 45.0 (39.0-53.0) % MCV 91.2 (80.0-100.0) fL MCH 30.7 (25.0-35.0) pg MCHC 33.7 (31.0-37.0) g/dL RDW 13.2 (11.5-15.5) % Plt Count 172 (150-450) k/uL MPV 7.3 Neutrophils % 81 % Lymphocytes % 10 % Monocytes % 7 % Eosinophils % 1 % Basophils % 0 % Neutrophils # 8.9 H (1.3-7.7) k/uL Lymphocytes # 1.1 (1.0-4.8) k/uL Monocytes # 0.8 (0-1.0) k/uL Eosinophils # 0.1 (0-0.7) k/uL Basophils # 0.0 (0-0.2) k/uL PT 12.7 H (9.0-12.0) sec INR 1.2 H (<1.2) Sodium (137-145) mmol/L Potassium (3.5-5.1) mmol/L Chloride (98-107) mmol/L Carbon Dioxide (22-30) mmol/L Anion Gap mmol/L BUN (9-20) mg/dL Creatinine (0.66-1.25) mg/dL Est GFR (CKD-EPI)AfAm (>60 ml/min/1.73 sqM) Est GFR (CKD-EPI)NonAf (>60 ml/min/1.73 sqM) Glucose (74-99) mg/dL Calcium (8.4-10.2) mg/dL Total Bilirubin (0.2-1.3) mg/dL AST (17-59) U/L ALT (4-49) U/L Alkaline Phosphatase (38-126) U/L Troponin I (0.000-0.034) ng/mL Total Protein (6.3-8.2) g/dL Albumin (3.5-5.0) g/dL Urine Color Urine Appearance (Clear) Urine pH (5.0-8.0) Ur Specific [place] (1.001-1.035) Urine Protein (Negative) Urine Glucose (UA) (Negative) Urine Ketones (Negative) Urine Blood (Negative) Urine Nitrite (Negative) Urine Bilirubin (Negative) Urine Urobilinogen (<2.0) mg/dL Ur Leukocyte Esterase (Negative) Coronavirus (PCR) Not Detected (Not Detectd) 03/30/21 03/30/21 03/30/21 Range/Units 14:26 14:26 16:22 WBC (3.8-10.6) k/uL RBC (4.30-5.90) m/uL Hgb (13.0-17.5) gm/dL Hct (39.0-53.0) % MCV (80.0-100.0) fL MCH (25.0-35.0) pg MCHC (31.0-37.0) g/dL RDW (11.5-15.5) % Plt Count (150-450) k/uL MPV Neutrophils % % Lymphocytes % % Monocytes % % Eosinophils % % Basophils % % Neutrophils # (1.3-7.7) k/uL Lymphocytes # (1.0-4.8) k/uL Monocytes # (0-1.0) k/uL Eosinophils # (0-0.7) k/uL Basophils # (0-0.2) k/uL PT (9.0-12.0) sec INR (<1.2) Sodium 135 L (137-145) mmol/L Potassium 4.1 (3.5-5.1) mmol/L Chloride 100 (98-107) mmol/L Carbon Dioxide 23 (22-30) mmol/L Anion Gap 12 mmol/L BUN 22 H (9-20) mg/dL Creatinine 0.86 (0.66-1.25) mg/dL Est GFR (CKD-EPI)AfAm >90 (>60 ml/min/1.73 sqM) Est GFR (CKD-EPI)NonAf >90 (>60 ml/min/1.73 sqM) Glucose 111 H (74-99) mg/dL Calcium 9.0 (8.4-10.2) mg/dL Total Bilirubin 0.7 (0.2-1.3) mg/dL AST 29 (17-59) U/L ALT 26 (4-49) U/L Alkaline Phosphatase 74 (38-126) U/L Troponin I <0.012 (0.000-0.034) ng/mL Total Protein 7.3 (6.3-8.2) g/dL Albumin 4.4 (3.5-5.0) g/dL Urine Color Yellow Urine Appearance Clear (Clear) Urine pH 5.5 (5.0-8.0) Ur Specific [place] 1.012 (1.001-1.035) Urine Protein Trace H (Negative) Urine Glucose (UA) Negative (Negative) Urine Ketones Negative (Negative) Urine Blood Negative (Negative) Urine Nitrite Negative (Negative) Urine Bilirubin Negative (Negative) Urine Urobilinogen <2.0 (<2.0) mg/dL Ur Leukocyte Esterase Negative (Negative) Coronavirus (PCR) (Not Detectd) Disposition Clinical Impression: Sinusitis, Fall, Back pain Disposition: HOME SELF-CARE Condition: Good Instructions (If sedation given, give patient instructions): Sinusitis (ED), Back Pain (ED), Fall Prevention (ED), Lower Back Exercises (ED) Additional Instructions: Take antibiotics as prescribed for sinusitis. Follow-up with the primary care doctor next week. Return to the emergency room with any new or worsening symptoms. For back pain you can use Motrin and/or Tylenol, and or [id number] topical pain relievers. Return to the emergency room with any new or worsening symptoms. Prescriptions: Amoxicillin/Potassium Clav [Augmentin 875-125 Tablet] 1 tab PO Q12HR 14 Days #28 tab Is patient prescribed a controlled substance at d/c from ED?: No Referrals: Russel Phillips MD [Primary Care Provider] - 1-2 days Time of Disposition: 16:46
[2021-03-30 14:39] LABS: Basophils % (A) 0 %; Eosinophils # (A) 0.1 k/uL (0-0.7); Eosinophils % (A) 1 %; HGB 15.1 gm/dL (13.0-17.5); Lymphocytes # (A) 1.1 k/uL (1.0-4.8); Lymphocytes % (A) 10 %; MCH 30.7 pg (25.0-35.0); MCHC 33.7 g/dL (31.0-37.0); MCV 91.2 fL (80.0-100.0); Mean Platelet Volume 7.3; Monocytes # (A) 0.8 k/uL (0-1.0); Monocytes % (A) 7 %; Neutrophils # (A) 8.9 k/uL (1.3-7.7); Neutrophils % (A) 81 %; Platelet Count 172 k/uL (150-450); RBC 4.93 m/uL (4.30-5.90); RDW 13.2 % (11.5-15.5)
[2021-03-30 14:43] LABS: INR 1.2 (<1.2); Prothrombin Time 12.7 sec (9.0-12.0)
[2021-03-30 14:47] LABS: Sodium 135 mmol/L (137-145)
[2021-03-30 14:49] LABS: ALT 26 U/L (4-49); AST 29 U/L (17-59); African American GFR (CKD) >90 (>60 ml/min/1.73 sqM); Albumin 4.4 g/dL (3.5-5.0); Alkaline Phosphatase 74 U/L (38-126); Anion Gap 12 mmol/L; Blood Urea Nitrogen 22 mg/dL (9-20); Carbon Dioxide 23 mmol/L (22-30); Chloride 100 mmol/L (98-107); Glucose 111 mg/dL (74-99); Non-African American GFR(CKD) >90 (>60 ml/min/1.73 sqM); Potassium 4.1 mmol/L (3.5-5.1); Total Bilirubin 0.7 mg/dL (0.2-1.3); Total Protein 7.3 g/dL (6.3-8.2)
[2021-03-30] MEDS ORDERED: MORPHINE SULFATE 4 MG/ML SYRINGE IVP STA (15:01)
[2021-03-30] MEDS ORDERED: ONDANSETRON 4 MG/2 ML VIAL IVP STA (15:12)
--- NOTE | 2021-03-30 15:13 | CT ---
EXAMINATION TYPE: CT brain wo con DATE OF EXAM: 03/30/2021 COMPARISON: CT brain 07/10/2017 HISTORY: Fall with injury. Trauma and pain CT DLP: 1099.4 mGycm Automated exposure control for dose reduction was used. Helical acquisition through the brain. FINDINGS: There is no hemorrhage or hydrocephalus. Brain density is maintained. Minimal inferior cerebellar ton sillar ectopia is noted. Calvarium is intact. There is likely mixed retention cyst in the maxillary a ntrum, left maxillary sinus. Orbits are intact. IMPRESSION: NO ACUTE BRAIN ABNORMALITY. SINUS DISEASE.
--- NOTE | 2021-03-30 15:27 | XR ---
EXAMINATION TYPE: XR chest 2V DATE OF EXAM: 03/30/2021 COMPARISON: NONE TECHNIQUE: PA and lateral views submitted. HISTORY: Fever and dizziness FINDINGS: The lungs are clear and there is no pneumothorax, pleural effusion, or focal pneumonia. Postsurgica l change overlying the cervical spine. Surgical clips in the gallbladder fossa. Heart size normal. Th e vein. Hypertrophic and degenerative changes spine. IMPRESSION: 1. No acute process.
--- NOTE | 2021-03-30 16:22 | XR ---
AP pelvis HISTORY: Trauma and pain Single frontal view the pelvis, correlation CT scan 11/04/2020 Patient shows posterior fusion changes at L4-S1. The screw at the inferior most aspect on the right i s displaced as noted on prior CT, intervertebral spacing block is present at L4-5 and also L5-S1. Bon e mineralization, joint spaces, alignment are maintained. IMPRESSION: No acute fracture or dislocation. Postop changes as described.
[2021-03-30 16:25] LABS: Appearance,Urine Clear (Clear); Bilirubin,Urine Negative (Negative); Blood,Urine Negative (Negative); Color,Urine Yellow; Glucose,Urine (UA) Negative (Negative); Ketones,Urine Negative (Negative); Leukocyte Esterase,Urine Negative (Negative); Nitrite,Urine Negative (Negative); PH, Urine 5.5 (5.0-8.0); Protein,Urine Trace (Negative); Specific Gravity,Urine 1.012 (1.001-1.035); Urobilinogen,Urine <2.0 mg/dL (<2.0)
--- NOTE | 2021-03-30 16:25 | XR ---
Lumbosacral spine HISTORY: Trauma and pain 5 views of the lumbosacral spine correlated to AP pelvis same date, lumbar spine 07/25/2010. Patient shows posterior fusion at L4-S1 as on prior exam. Laminectomies are present at L5. Interverte bral spacing blocks present at L4-5, L5-S1, anterolisthesis grade 1 L5-S1. There is a displaced screw present on the right as noted on previous. Surgical clips are present right upper quadrant. There is no evident spondylolysis. Multilevel spondylosis is present. Lumbar vertebral bodies show preserved height and alignment. Bone mineralization maintained. IMPRESSION: No acute fracture or subluxation.
[2021-03-30 16:54] VITALS: BP 127/87; PULSE 69; RESP 18; TEMP 10.7
== END 2021-03-30 16:49 | disposition home or self-care (01) ==
LOC: EC 13:18
DX: J32.9 Chronic sinusitis, unspecified (principal); M54.50 Low back pain, unspecified; Z86.718 Personal history of other venous thrombosis and embolism; M19.90 Unspecified osteoarthritis, unspecified site; I10 Essential (primary) hypertension; W19.XXXA Unspecified fall, initial encounter; Y92.002 Bathroom of unspecified non-institutional (private) residence as the place of occurrence of the external cause
CPT/HCPCS: 36415; 93005; 80053; 84484; 85025; 85610; 81003; 87635; 72110; 72170; 71046; 70450; 99284; 96374; 96375; 96361; J2270; J2405

== ENCOUNTER 2021-04-07 05:58 | Day surgery (SDC) | payer MEDICARE ==
[2021-04-06 09:50] VITALS: BMI 29.8
[2021-04-07] MEDS ORDERED: LACTATED RINGERS 1,000 ML IV SCH (06:09)
[2021-04-07 06:18] VITALS: RESP 16; TEMP 96.8
[2021-04-07] MEDS ORDERED: LIDOCAINE 1% (10MG/ML) FOR IV START INTRADERMA ONE (06:22)
[2021-04-07] MEDS ORDERED: MIDAZOLAM 2 MG/2 ML VIAL ONE (07:00)
[2021-04-07] MEDS ORDERED: .fentaNYL (PF) 50 MCG/ML 2 ML AMP ONE (07:00)
[2021-04-07] MEDS ORDERED: ROPIVACAINE 5MG/ML 20ML VIAL ONE (07:00)
[2021-04-07] MEDS ORDERED: methylPREDNISolone ACETATE 40 MG/ML 1 ML VIAL ONE (07:00)
--- NOTE | 2021-04-07 07:40 | P.PCN ---
Date of Procedure: 04/07/21 Procedure(s) Performed: PREOPERATIVE DIAGNOSIS: 1-Thoracic Spondylosis with Facet Arthropathy without myelopathy. POSTOPERATIVE DIAGNOSIS: 1-Thoracic Spondylosis with Facet Arthropathy without myelopathy. PROCEDURES : Bilateral Radiofrequency thermocoagulation, T7 ,T8 and T9 medial branch, with fluoroscopic guidance (fluoroscopy images available in the radiology department) ( to denervate the facet joint at Bilateral T7-8 ,and T8-9 levels ). ANESTHESIA: Monitored anesthesia care as per anesthesia department. EBL: Minimal PROCEDURE INDICATION: The patient with low back pain secondary to lumbar facet arthropathy who had more than 50% relief of her pain with previous diagnostic lumbar medial branch block with bupivacaine. PROCEDURE DESCRIPTION / TECHNIQUE: The patient was seen and identified in the preoperative area. Risks, benefits, complications, including but not limited to risk of infection ,bleeding , allergic reactions to the medications and no complete pain releife , and alternatives were discussed with the patient, the patient agreed to proceed with the procedure and signed the consent. IV was started. Vital signs remained stable throughout the procedure. Patient was taken to the OR and time out was completed. The patient was placed in the prone position on the procedure table. The lumber area was prepped and draped in the usual sterile fashion. . Vital signs were closely monitored during the procedure .IV sedation was used during the procedure to decrease patients anxiety. Using AP and then oblique fluoroscopy, the ``eye of the Osvaldo dog corresponding to the connection between the superior and transverse articular processes of right T7,T8 ,T9 were identified, marked, and localized with 1% lidocaine. Subsequently, a 20 -xf radiofrequency cannula with a 10-mm active tip was advanced guided by fluoroscopy to each of the``eyes of the Osvaldo dog at right T7 ,T8 ,T9 Each site then underwent sensory testing at 50 Hz and 0 to 1 volt and motor testing at 2.5 Hz and 0 to 3 volt with local stimulation, but no radicular symptoms down the legs. Thereafter each sites underwent radiofrequency thermocoagulation at 80 degrees celsius for 90 seconds after injecting 0.5 ml of PF Ropivacaine 1ml, then after the thermocoagulation done , 1 ml of the block solution containing Depo-Medrol 40 mg and 3 ml of Ropivacaine 0.5% was injected at the rightT7,T8,T9 , levels after negative aspiration of CSF and blood and with no paresthesias. Cannulas were retracted while injecting lidocaine 1% until the needle is out. The same procedure was repeated at the level of Left T7, T8 ,T9 levels. At the end of the procedure, the skin was cleansed and bandages were applied. COMPLICATIONS: No acute complications. DISPOSITION / PLANS: The patient was placed in a supine position and transferred to the recovery area in a stable condition for observation and was discharged from the recovery room after meeting discharge criteria. Home discharge instructions given to the patient by the staff. The patient was reexamined prior to discharge. The patient will schedule a follow up in the clinic in 2-4 weeks.
[2021-04-07] MEDS ORDERED: LACTATED RINGERS 600 ML IV ONE (07:41)
[2021-04-07 07:57] VITALS: BP 136/94; PULSE 72
[2021-04-07] MEDS ORDERED: ONDANSETRON 4 MG/2 ML VIAL ONE (08:06)
--- NOTE | 2021-04-07 08:12 | XR ---
EXAMINATION TYPE: XR chest 1V portable DATE OF EXAM: 04/07/2021 COMPARISON: Chest x-ray March 30, 2021 HISTORY: Post pain injection. TECHNIQUE: Single AP portable frontal upright view of the chest is obtained. FINDINGS: Diminished inspiration current study. Lungs remain clear. No pneumothorax seen after pain injection. The cardiac silhouette size is stable and within normal limits. Surgical change in the cer vical spine is partially imaged. Cholecystectomy clips redemonstrated. IMPRESSION: As above
--- NOTE | 2021-04-07 08:28 | FL ---
EXAMINATION TYPE: FL guided pain mgmt statistic DATE OF EXAM: 04/07/2021 HISTORY: Fluoroscopy time 28 seconds of fluoroscopy provided. IMPRESSION: 1. Fluoroscopy time.
== END 2021-04-07 08:40 | disposition home or self-care (01) ==
LOC: ORPAIN 05:58
PROVIDERS: ATTEND Specialist
DX: M47.14 Other spondylosis with myelopathy, thoracic region (principal)
CPT/HCPCS: 64633; 64634; 71045; J2250; J1030; J2405; J3010; J2795

== ENCOUNTER → 2021-05-17 | Outpatient (CLI) | payer MEDICARE ==
--- NOTE | 2021-05-18 06:41 | CT ---
EXAMINATION TYPE: CT sinus wo con DATE OF EXAM: 05/17/2021 COMPARISON: NONE HISTORY: left side sinus drainage. CT DLP: 435.9 mGycm. Automated Exposure Control for Dose Reduction was Utilized. TECHNIQUE: CT scan of the sinuses is performed without contrast, axial images are obtained, coronal r eformatted images are also reviewed. FINDINGS: There is 2.1 cm mucous retention cyst or polyp in the inferior left maxillary sinus. Mild m ucosal thickening in the anterior ethmoid sinuses. There are nondeveloped or hypoplastic bilateral fr ontal sinuses. No suspicious opacification or air-fluid levels are present. The ostiomeatal complex is patent bilaterally on coronal image 20. Visualized portion of mastoid air cells show no abnormal opacification. Old fracture deformity medial wall left orbit axial image 30. Globes are intact bilaterally. Intraconal fat is preserved. IMPRESSION: Chronic paranasal sinus disease as detailed above. No acute sinusitis.
== END | disposition home or self-care (01) ==
LOC: RADCTMAIN 18:07
PROVIDERS: ATTEND Otolaryngology
DX: J34.1 Cyst and mucocele of nose and nasal sinus (principal); J34.89 Other specified disorders of nose and nasal sinuses; H05.89 Other disorders of orbit
CPT/HCPCS: 70486

== ENCOUNTER 2021-05-30 12:39 | Day surgery (SDC) | payer MEDICARE ==
[2021-05-30 13:02] VITALS: TEMP 98.1
[2021-05-30] MEDS ORDERED: ROPIVACAINE 5MG/ML 20ML VIAL ONE (13:08)
[2021-05-30] MEDS ORDERED: methylPREDNISolone ACETATE 40 MG/ML 1 ML VIAL ONE (13:08)
[2021-05-30 13:26] VITALS: RESP 16
--- NOTE | 2021-05-30 13:26 | P.PCN ---
Date of Procedure: 05/30/21 Procedure(s) Performed: PROCEDURE 1. Trigger point injections Thoracic paraspinal muscles.(total of 5 trigger point injected on the left side, and 4 trigger point injected on the right side,) PREOPERATIVE DIAGNOSIS: 1-myofascial pain syndrom Thoracic area 3-Thoracic spondylosis with Thoracic Facet arthropathy without myelopathy POST op DIAGNOSIS: : Same as pre op -diagnosis. ANESTHESIA: none . EBL 0 PROCEDURE INDICATION: The patient with mid back pain unresponsive to conservative treatment consents for procedure. PROCEDURE DESCRIPTION / TECHNIQUE: The patient was seen and identified in the preoperative area. Risks, benefits, complications, including but not limited to infections ,bleeding , allergic reactions to the medications ,and not complete pain releife, and alternatives were discussed with the patient, the patient agreed to proceed with the procedure and signed the consent, Patient taken to the procedure room sitting position , a cervical area prepped with chlorhexidine 3 done under sterile technique, using 25-gauge needle, 18 mL of ropivacaine 0.5% Extension with 40 mg of Depo-Medrol, 2 mL injected at each trigger point after negative aspiration, and there was no paresthesia during the injection, total of 5 trigger point injected on the left side Thoracic paraspinal muscles , and 4 trigger point injected on the right side Thoracic paraspinal muscles , patient tolerated the procedure well without any complications
[2021-05-30 13:28] VITALS: BP 150/88; PULSE 68
== END 2021-05-30 13:35 | disposition home or self-care (01) ==
LOC: ORPAIN 12:39
PROVIDERS: ATTEND Specialist
DX: T14.8XXS Other injury of unspecified body region, sequela (principal); M47.814 Spondylosis without myelopathy or radiculopathy, thoracic region; M79.18 Myalgia, other site
CPT/HCPCS: 20553; J1030; J2795

== ENCOUNTER → 2021-06-19 | Outpatient (CLI) | payer MEDICARE ==
--- NOTE | 2021-06-19 15:40 | P.PN ---
Subjective Progress Note Date: 06/19/21 Principal diagnosis: A 56 yr old male with a history of severe and chronic mid back pain secondary to thoracic degenerative disc diseases presents today for evaluation status post bilateral TPIs T7-T8, T8-T9 #2. Patient states he expressively 50% pain relief for one week status post procedure. He has received 2 TPI injections over a two-month period in the same area. Pain level is currently at 7 out of 10 in intensity, dull, achy with radiation of pain left and right of midline towards the center of his chest. Pain is provoked by overhead reaching. Pain is alleviated with medications, topicals, repositioning bed, massage current use, physical therapy that has ended, home based exercise regimen, weekly massages and rest. Interventional pain procedures completed include bilateral thoracic RFA and TPI Patient is currently on Percocet 10/325 mg Patient denies any side effects of the medication(s), denies excessive drowsiness or sleepiness, denies suicidal ideation and reports that the current pain medication is helping to control the pain and improve activities of daily living. Patient denies any motor or sensory deficits. Patient denies any fever or night sweats, denies any change in the bowel movements or urination. Physical Examination: -Constitutional: Cooperative. Not in acute distress . -HEENT: Neck is supple. No lymphadenopathy. No thyromegaly. Normal thyroid size. Eyes: No ptosis , no icterus, no photophobia. ENT: No auditory deficits. Normal oropharynx. No Thrush. - Respiratory: Chest clear to auscultations bilaterally. No wheezing. No rhonchi. - Cardiovascular: Regular rate and rhythm. S1 / S2 , no S3 , no S4. - Gastrointestinal: Abdomen soft no tenderness. Bowel sounds positive in all four quadrants. No organomegaly. - Genitourinary: Deferred. - Neurologic: Cranial nerve II to XII intact. No focal neurological deficits. - Psychatric: Alert & oriented x 3. Matching mood & appropriate affect. Judgment and insight intact. - Lymphatic: No Lymphadenopathy. - Musculoskeletal: Cervical spine: Muscle bulk/ tone/ strength in the bilateral upper extremities normal. Facet loading test cervical area positive. Thoracic spine: Tenderness to palpation over the bilateral paraspinal muscles T7-T8, T8-T9 with accompanying spasms Lumbar spine: Motor bulk/ tone/ strength lower extremities , thigh and legs : 5/5 Deep tendon reflexes : Normal Knee Jerk. Normal Ankle Jerk . Vertebral body tenderness to palpation over Lumbar Facet Loading Test positive Straight Leg Raise: positive at 30 degrees right side/ left side Gaenslen's Test positive Sacral spine : Severe tenderness over the Sacroiliac joint: right side / left side Range of motion: Flexion of the lumbar spine <60 degrees Range of motion: Extension of the lumbar spine <20 degrees Gaenslen's Test positive Nacho test: positive right side / left side Assessment and plan: Chronic mid back pain secondary to thoracic degenerative disc disease Physical therapy ordered with a focus on Thoracic traction x 6 weeks All patient questions answered MAPS reviewed and it was appropriate. Prescription refill for Volataren gel for prn use I have spent 31 minutes on patient care today. Dr Babcock was available by phone for the evaluation of this patient. The time was used to review the medical records including relevant urine studies and Prescription history (MAPs), review of the available imaging, evaluation and examination of the patient, coordination of care with the medical staff and if applicable referring physicians, as well as creation of the medical record PQRS Measure Charge Sheet PQRS Narrative: Smoking Status Never smoker Hx Alcohol Use (MH) No Home Medications: Ambulatory Orders Fluticasone Nasal [place] [Flonase Nasal [place]] 1 spray EA NOSTRIL BID 03/30/21 Tamsulosin [Flomax] 0.4 mg PO HS 03/30/21 oxyCODONE HCL/ACETAMINOPHEN [Percocet 10-325 mg] 0.5 tab PO Q3H 03/30/21 Cyclobenzaprine [Flexeril] 5 mg PO HS PRN 30 Days #60 tab 05/10/21
[2021-06-19 16:06] VITALS: BP 161/98; PULSE 51; RESP 18; TEMP 97.6
== END ==
LOC: PNWHC3 13:58
PROVIDERS: ATTEND Physician Assistant Medical
DX: G89.29 Other chronic pain (principal); M51.34 Other intervertebral disc degeneration, thoracic region
CPT/HCPCS: 99211

== ENCOUNTER 2021-08-02 10:29 | Day surgery (SDC) | payer MEDICARE ==
[~2021-08-02 10:29] MED LIST changes: +DEXAMETHASONE SOD PHOSPHATE 4 MG/ML 1 ML VIAL IV PRN; +FAMOTIDINE 20 MG/2 ML VIAL IV PRN; -LACTATED RINGERS 1,000 ML IV SCH; +ONDANSETRON 4 MG/2 ML VIAL IVP PRN; +metroNIDAZOLE-NS PMX 500 MG in SALINE 1 100ML.BAG IVPB PRN
[2021-08-02] MEDS: OXYMETAZOLINE 0.05% NASL SPRAY 1 SPRAY BOTTLE EA NOSTRIL PRN ×5 (10:55→11:21)
[2021-08-02] MEDS ORDERED: LACTATED RINGERS 1,000 ML IV ONE ×2 (11:09→14:56)
[2021-08-02] MEDS ORDERED: DEXAMETHASONE SOD PHOSPHATE 4 MG/ML 1 ML VIAL IV ONE ×2 (11:14→17:27)
[2021-08-02] MEDS ORDERED: MIDAZOLAM 2 MG/2 ML VIAL IVP ONE (11:26)
[2021-08-02] MEDS ORDERED: fentaNYL (PF) 50 MCG/ML 2 ML AMP ONE (14:04)
[2021-08-02] MEDS ORDERED: SUCCINYLCHOLINE CHLORIDE 100 MG/5 ML SYR IV ONE (14:04)
[2021-08-02] MEDS ORDERED: PHENYLEPHRINE-0.9% NACL SYG 1,000 MCG/10 ML SYRINGE ONE (14:04)
[2021-08-02] MEDS ORDERED: MIDAZOLAM 2 MG/2 ML VIAL ONE (14:04)
[2021-08-02] MEDS ORDERED: PROPOFOL 10 MG/ML 20 ML VIAL IV ONE (14:04)
[2021-08-02] MEDS ORDERED: LIDOCAINE 1% INJ 10MG/ML (20 ML MDV) SQ ONE ×2 (14:15)
--- NOTE | 2021-08-02 15:02 | P.OP ---
Date of Procedure: 08/02/21 Preoperative Diagnosis: Deviated nasal septum Inferior turbinate hypertrophy Chronic sinusitis Postoperative Diagnosis: Same Procedure(s) Performed: Septoplasty Outfracture and submucous resection inferior turbinates Bilateral endoscopic sinus surgery including bilateral maxillary antrostomy with removal of tissue from the left maxillary sinus, right anterior ethmoidectomy Anesthesia: NATALYA Surgeon: Alejandro Tang Estimated Blood Loss (ml): 5 Pathology: other (Nasal septal bone and cartilage and sinus contents) Condition: stable Disposition: PACU Indications for Procedure: Is a 56-year-old white male whose had difficulties with chronic nasal airway obstruction congestion and recurrent/chronic sinusitis Operative Findings: Nasal septum deviated to the right anteriorly to the left posteriorly. Inferior turbinate hypertrophy bilaterally. Maxillary ostia obstructed bilaterally. Small cysts in the left maxillary sinus and mucosal thickening in the right anterior ethmoid air cells. Description of Procedure: The patient was brought into the operative suite and placed in a supine position. The patient underwent induction of general anesthesia with oral endotracheal intubation without difficulty. The patient was prepped and draped in the usual aseptic fashion with the orbits in the operating field for monitoring to the case and the computed tomography scan was on the computer screen for review throughout the case. 1% lidocaine with 1 :100,000 epinephrine was infused submucosally into both sides of the nasal septum as well as the lateral nasal wall and anterior tips of the middle turbinates. While this was taking vasoconstrictive effect the inferior turbinates were infractured with [place] elevator and partial submucous resection of the inferior turbinates was performed with a portion of the submucosal soft tissue and the inferior turbinate bone removed with Coblation device. The inferior turbinates were then outfractured with the [place] elevator. A left hemitransfixion incision was then made with the mucoperichondrial and mucoperiosteal flap on the left elevated. The bony cartilaginous junction was disarticulated and the mucoperiosteal flap on the right was elevated. Bony nasal septal deformities were removed with Janine forceps and an inferior cartilaginous strip was removed leaving a full 1.5 cm caudal strut. Checking intranasally this corrected the nasoseptal deformities and the hemitransfixion incision was closed with a running 4-0 chromic suture. Full 0 endoscopic examination is performed bilaterally. Beginning on the left, the middle turbinate was medialized. The maxillary ostium was located with a ballpoint probe and an infundibulotomy was performed followed by uncinectomy. The maxillary antrostomy was enlarged at the expense of the anterior and posterior fontanelle taking care anteriorly not to injure the lacrimal bone. The maxillary sinus was evaluated with 30 and 70 endoscope .[Abnormal appearing tissue was removed from the maxillary sinus]. Anterior ethmoidectomy was performed on the right from anterior to posterior to the level skull base with the roof the anterior ethmoid air cells cleaned from posterior to anterior under 30 endoscopic visualization. Procedures were followed on the right as they were on the left as far as the maxillary antrostomy but no tissue was removed from the maxillary sinus. [Nasopore nasal dressing was placed in the middle meatus bilaterally under direct visualization]. Bilateral Macias airway splints coated with bacitracin ointment were placed and sutured transseptally with a 4-0 nylon suture. The patient was suctioned in oral gastric fashion and was allowed to emerge from general anesthesia having tolerated procedure well and was extubated in the operating suite and transferred to the postoperative recovery area in satisfactory condition.
[2021-08-02 15:18] VITALS: RESP 16; TEMP 97
[2021-08-02] MEDS: HYDROmorphone 0.5 MG/0.5 ML SYRINGE IVP ONE ×4 (15:40→16:19)
[2021-08-02] MEDS ORDERED: HYDROcodone/APAP 5-325MG 1 EACH TAB ONE (16:55)
[2021-08-02] MEDS ORDERED: HYDROcodone/APAP 5-325MG 1 EACH TAB PO ONE (16:56)
[2021-08-02] MEDS ORDERED: MIDAZOLAM 2 MG/2 ML VIAL IV PRN (17:27)
[2021-08-02] MEDS ORDERED: LIDOCAINE 1% (10MG/ML) FOR IV START INTRADERMA PRN (17:27)
[2021-08-02] MEDS ORDERED: LACTATED RINGERS 1,000 ML IV SCH (17:27)
[2021-08-02] MEDS ORDERED: HYDROmorphone 0.5 MG/0.5 ML SYRINGE IVP PRN (17:27)
[2021-08-02] MEDS ORDERED: ONDANSETRON 4 MG/2 ML VIAL IVP ONE (17:27)
[2021-08-02 17:48] VITALS: BP 144/87; PULSE 63
== END 2021-08-02 17:53 | disposition home or self-care (01) ==
LOC: OR 10:29
PROVIDERS: ATTEND Otolaryngology
DX: J34.3 Hypertrophy of nasal turbinates (principal); J34.2 Deviated nasal septum; J01.90 Acute sinusitis, unspecified; J45.909 Unspecified asthma, uncomplicated; F17.200 Nicotine dependence, unspecified, uncomplicated; N40.0 Benign prostatic hyperplasia without lower urinary tract symptoms; K21.9 Gastro-esophageal reflux disease without esophagitis; Z79.899 Other long term (current) drug therapy
CPT/HCPCS: 30930; 31267; 31254; 88305; 88300; J2250; J1100; J0690; J2405; J2001; J3010; J2370; J0330; J2704; J1170

== ENCOUNTER → 2022-01-11 | Outpatient (CLI) | payer MEDICARE ==
--- NOTE | 2022-01-11 14:54 | P.PAINPG ---
PQRS Measure Charge Sheet Comment: A 56 yr old male with a history of severe and chronic neck pain secondary to cervical degenerative disc diseases and spondylosis with facet arthropathy without myelopathy presents today for neck pain. Pain level is currently at 6/10 in intensity, constant, localized in the upper and lower cervical spine, d ull/ achy/ sharp/ shooting towards BL shoulders, BUEs and hands w numbness. Pain is provoked by rotation or hyperextension. Pain is alleviated with PT in Jul 2021 x 6 wks, heat, ice, medications (Oxycodone), topicals, laying face down, repositioning and rest. Interventional pain procedures completed include Thoracic TPIs Patient is currently on Oxycodone prn Patient denies any side effects of the medication(s), denies excessive drowsiness or sleepiness, denies suicidal ideation and reports that the current pain medication is helping to control the pain and improve activities of daily living. Patient denies any motor or sensory deficits. Patient denies any fever or night sweats, denies any change in the bowel movements or urination. Physical Examination: -Constitutional: Cooperative. Not in acute distress . - Neurologic: Cranial nerve II to XII intact. No focal neurological deficits. - Psychatric: Alert & oriented x 3. Matching mood & appropriate affect. Judgment and insight intact. - Musculoskeletal: Cervical spine: Muscle bulk/ tone/ strength in the bilateral upper extremities normal Vertebral body tenderness to palpation over Sp[place]ling test positive over BL C4-C5, C5-C6 Distraction test positive Facet loading test positive over BL C4-C5, C5-C6 Thoracic spine Muscle bulk / tone/ strength in the bilateral paraspinal muscles normal Vertebral body tender to palpation over Facet loading test positive Lumbar spine: Motor bulk/ tone/ strength lower extremities , thigh and legs : 5/5 Deep tendon reflexes : Normal Knee Jerk. Normal Ankle Jerk . Vertebral body tenderness to palpation over Lumbar Facet Loading Test positive Straight Leg Raise: positive at 30 degrees right side/ left side Gaenslen's Test positive Sacral spine : Severe tenderness over the Sacroiliac joint: right side / left side Range of motion: Flexion of the lumbar spine <60 degrees Range of motion: Extension of the lumbar spine <20 degrees Gaenslen's Test positive Russel's Test positive Nacho test: positive right side / left side Thigh Thrust Test Sacral Thrust Test Imaging: CT without contrast of the cervical spine from 10/17/20 reviewed Assessment and plan: Chronic neck pain secondary to cervical degenerative disc disease , spondylosis with facet arthropathy without myelopathy Recommendation of BL MBB C4-C5, C5-C6 #1. May need a series of injections, up to 3 within a 6 mo period, for optimal pain relief. Risks, benefits of procedure discussed and pt verbalized understanding. Denies anticoagulant use or medical history of diabetes. All patient questions answered I have spent less than 30 minutes on patient care today. Dr Babcock was available by phone for the evaluation of this patient. The time was used to review the medical records including relevant urine studies and Prescription history (MAPs), review of the available imaging, evaluation and examination of the patient, coordination of care with the medical staff and if applicable referring physicians, as well as creation of the medical record PQRS Narrative: Smoking Status Never smoker Hx Alcohol Use (MH) No Home Medications: Ambulatory Orders Fluticasone Nasal [place] [Flonase Nasal [place]] 1 spray EA NOSTRIL BID 03/30/21 Tamsulosin [Flomax] 0.4 mg PO HS 03/30/21 oxyCODONE HCL/ACETAMINOPHEN [Percocet 10-325 mg] 0.5 tab PO Q3H 03/30/21 Cyclobenzaprine [Flexeril] 5 mg PO HS PRN 30 Days #60 tab 05/10/21 Diclofenac Sodium Gel [Voltaren Gel] 2 gm TOPICAL QID 30 Days #100 gm 06/19/21 Controlled Substance Measures - Controlled Substance Measures Is patient prescribed a controlled substance at discharge?: No
[2022-01-11 15:37] VITALS: BP 153/93; PULSE 68; RESP 18; TEMP 97.8
== END ==
LOC: PNWHC3 13:47
PROVIDERS: ATTEND Specialist
DX: M50.30 Other cervical disc degeneration, unspecified cervical region (principal); M47.812 Spondylosis without myelopathy or radiculopathy, cervical region; G89.29 Other chronic pain
CPT/HCPCS: 99211

== ENCOUNTER → 2022-03-22 | Outpatient (CLI) | payer MEDICARE ==
[2022-03-22 07:58] VITALS: BP 142/85; PULSE 60; RESP 18; TEMP 98.2
--- NOTE | 2022-03-22 14:22 | P.PAINPG ---
PQRS Measure Charge Sheet Comment: A 57 yr old male with a history of severe and chronic low back pain secondary to post laminectomy syndrome with facet arthropathy without myelopathy presents today for LBP. Pain level is currently at 8/10 in intensity, constant, localized in the mid to lower lumbar spine, sharp/ burning in character w shoo ting towards the L hip, RLE w R foot numbness. Pain is provoked by bending, driving for periods of 30 min or more. Pain is alleviated with massage therapy in the past, home exercise daily, heat, meds (Percocet from Dr Power, Lyrica from his PCP), topicals, repositioning and rest. Patient is currently on Percocet 10/325mg, Lyrica Patient denies any side effects of the medication(s), denies excessive drowsiness or sleepiness, denies suicidal ideation and reports that the current pain medication is helping to control the pain and improve activities of daily living. Patient denies any motor or sensory deficits. Patient denies any fever or night sweats, denies any change in the bowel movements or urination. Physical Examination: -Constitutional: Cooperative. Not in acute distress . - Neurologic: Cranial nerve II to XII intact. No focal neurological deficits. - Psychatric: Alert & oriented x 3. Matching mood & appropriate affect. Judgment and insight intact. - Musculoskeletal: Cervical spine: Muscle bulk/ tone/ strength in the bilateral upper extremities normal Vertebral body tenderness to palpation over Spurling test positive Distraction test positive Facet loading test positive Thoracic spine Muscle bulk / tone/ strength in the bilateral paraspinal muscles normal Vertebral body tender to palpation over Facet loading test positive Lumbar spine: Motor bulk/ tone/ strength lower extremities , thigh and legs : 5/5 Deep tendon reflexes : Normal Knee Jerk. Normal Ankle Jerk . Vertebral body tenderness to palpation over Lumbar Facet Loading Test positive Straight Leg Raise: positive at 30 degrees right side/ left side Gaenslen's Test positive Sacral spine : Severe tenderness over the Sacroiliac joint: right side / left side Range of motion: Flexion of the lumbar spine <60 degrees Range of motion: Extension of the lumbar spine <20 degrees Gaenslen's Test positive BL Nacho test: positive right side < left side Thigh Thrust Test BL Sacral Thrust Test Imaging: CT without contrast of the lumbar spine from 03/12/22 reviewed Assessment and plan: Chronic low back pain secondary to post laminectomy syndrome with facet arthropathy without myelopathy, BL Sacroiliitis Recommendation of BL SI injection. May need a series, up to every 3 mo, for optimal pain relief. Risks, benefits of procedure discussed and pt verbalized understanding. Denies anticoagulant use or medical history of diabetes. All patient questions answered I have spent less than 30 minutes on patient care today. Dr Babcock was available by phone for the evaluation of this patient. The time was used to review the medical records including relevant urine studies and Prescription history (MAPs), review of the available imaging, evaluation and examination of the patient, coordination of care with the medical staff and if applicable referring physicians, as well as creation of the medical record PQRS Narrative: Smoking Status Never smoker Hx Alcohol Use (MH) No Home Medications: Ambulatory Orders Fluticasone Nasal [place] [Flonase Nasal [place]] 1 spray EA NOSTRIL BID 03/30/21 Tamsulosin [Flomax] 0.4 mg PO HS 03/30/21 oxyCODONE HCL/ACETAMINOPHEN [Percocet 10-325 mg] 0.5 tab PO Q3H 03/30/21 Cyclobenzaprine [Flexeril] 5 mg PO HS PRN 30 Days #60 tab 05/10/21 Diclofenac Sodium Gel [Voltaren Gel] 2 gm TOPICAL QID 30 Days #100 gm 06/19/21 Pregabalin [Lyrica] 50 mg PO DAILY 03/22/22 Controlled Substance Measures - Controlled Substance Measures Is patient prescribed a controlled substance at discharge?: No
== END ==
LOC: PNWHC3 07:21
PROVIDERS: ATTEND Specialist
DX: M96.1 Postlaminectomy syndrome, not elsewhere classified (principal); G89.29 Other chronic pain; M46.1 Sacroiliitis, not elsewhere classified
CPT/HCPCS: 99211

== ENCOUNTER 2022-07-24 10:15 | Day surgery (SDC) | payer MEDICARE ==
[~2022-07-24 10:15] MED LIST changes: -DEXAMETHASONE SOD PHOSPHATE 4 MG/ML 1 ML VIAL IV PRN; -FAMOTIDINE 20 MG/2 ML VIAL IV PRN; +LACTATED RINGERS 1,000 ML IV SCH; +LIDOCAINE 1% (10MG/ML) FOR IV START INTRADERMA PRN; -ONDANSETRON 4 MG/2 ML VIAL IVP PRN; -metroNIDAZOLE-NS PMX 500 MG in SALINE 1 100ML.BAG IVPB PRN
[2022-07-24 10:57] VITALS: RESP 16; TEMP 97.8
[2022-07-24] MEDS ORDERED: IOPAMIDOL M200 10 ML VIAL ONE (11:10)
[2022-07-24] MEDS ORDERED: methylPREDNISolone ACETATE 80 MG/ML 1 ML VIAL ONE (11:10)
--- NOTE | 2022-07-24 11:26 | P.PCN ---
Date of Procedure: 07/24/22 Procedure(s) Performed: PREOP DIAGNOSIS: 1- Lumbar postlaminectomy syndrome. POSTOP DIAGNOSIS:1- Lumbar postlaminectomy syndrome. PROCEDURE: 1-Caudal epidural steroid injection with epidurolysis and epidurogram under fluoroscopic guidance. (Fluoroscopy images available in the radiology Department ) 2-caudal epidurogram. ANESTHESIA: Local anesthesia with lidocaine 1% 5 ML only EBL: Minimal. PROCEDURE INDICATION: The patient with post-laminectomy syndrome with low back pain and radiculopathy radiating down in both legs, here for a caudal epidural steroid injection with epidurolysis. PROCEDURE DESCRIPTION: The patient was seen and identified in the preoperative area. Risks, benefits, complications, and alternatives were discussed with the patient. The patient agreed to proceed with the procedure and signed the consent, and vital signs were stable. Patient was taken to the OR and time out was completed. The patient was placed in the prone position on procedure table and a pillow was placed under the abdomen to reduce lumbar lordosis. The lumbosacral area was prepped and draped in the usual sterile fashion. Vital signs were closely monitored during the procedure. lateral view and the anterior-posterior plates of the sacrum were identified with infiltration of the area overlying the sacral hiatus with 1% lidocaine .A 17 gauge RK epidural needle was used to advance through the sacral hiatus into the caudal epidural space. Omnipaque 180 dye. 2cc was injected and the position of the needle was verified to be in the midline. A Racz catheter was introduced into the epidural space and was advanced towards the L5-S1 inte rspace under direct fluoroscopic guidance. Multiple passes were made with the catheter for lysis of epidural adhesions. Depo-Medrol 80 mg ( preservative-free ) with 3ml of preservative free Lidocain e 1% and 5 ml of preservative free normal saline was injected slowly. Additional spread was seen to L4 under fluoroscopy. The needle and the catheter were withdrawn intact. EPIDUROGRAM: Omnipaque 180 mg dye 2 ml was injected with spread of the dye into the caudal epidural space and with spread cutoff at L5 prior to epidurolysis. Post epidurolysis dye 2 ml was injected and spread was seen to L3-4.There was further spread of the solution together with the dye above the L3 COMPLICATIONS: None. DISPOSITION / PLANS: The patient was placed in a supine position and transferred to the recovery area in a stable condition for observation and was discharged from the recovery room after meeting discharge criteria. Home discharge instructions given to the patient by the staff. The patient was reexamined prior to discharge. The patient will schedule a follow up in the clinic in 2-4 weeks.
--- NOTE | 2022-07-24 11:40 | FL ---
Intraoperative/procedural fluoroscopic services were provided. Total fluoroscopy time is 6.5 seconds with a total of 2 submitted images to PACS. Please see the operative/procedural note for further deta ils. DAP: [id number]
[2022-07-24 12:08] VITALS: BP 132/83; PULSE 56
== END 2022-07-24 12:08 | disposition home or self-care (01) ==
LOC: ORPAIN 10:15
PROVIDERS: ATTEND Specialist
DX: M96.1 Postlaminectomy syndrome, not elsewhere classified (principal)
CPT/HCPCS: 62323; J1040; Q9966; 62264

== ENCOUNTER → 2022-08-02 | Outpatient (CLI) | payer MEDICARE ==
--- NOTE | 2022-08-02 15:30 | CT ---
EXAMINATION TYPE: CT urogram wo/w con DATE OF EXAM: 08/02/2022 COMPARISON: 11/04/2020 HISTORY: hematuria x [address] DLP: 2581.8 mGycm CONTRAST: Performed and without and with IV Contrast, patient injected with 100 mL of Isovue 300. CT Urography was performed with unenhanced followed by enhanced images of the kidneys, ureters and ur inary bladder. Delayed images were obtained. 3d reconstruction was perfromed at a separate work sta tion. FINDINGS: KIDNEYS/BLADDER: No hydronephrosis. No nephrolithiasis. There is a simple cyst midpole left kidney measuring 1.8 cm. No additional renal lesions are seen. No evidence for solid renal mass. Lobulated a ppearance involving the base of the prostate gland to the left of midline with impression upon the ur inary bladder is unchanged relative to the prior study. LUNG BASES-: No visible nodule. No infiltrate. LIVER/GB: There is mild hepatic steatosis. The gallbladder is surgically absent. No space occupying hepatic lesion. Biliary tree is of normal caliber. PANCREAS: No inflammation. No distinct mass. SPLEEN: No splenic enlargement. No lesion seen. ADRENALS: No nodule. No thickening. BOWEL: Normal appendix. Normal bowel caliber. No inflammation. GENITAL ORGANS: No gross abnormality. LYMPH NODES: No greater than 1cm abdominal or pelvic lymph nodes are appreciated. AORTA: No significant abnormality. OSSEOUS STRUCTURES: No significant abnormality is seen. OTHER: No significant additional abnormality is seen. IMPRESSION: 1. Left renal cyst appears simple in appearance. 2. Lobulated appearance of the prostate gland as seen previously without significant change. Correlat e with PSA and ultrasound if felt clinically indicated.
== END | disposition home or self-care (01) ==
LOC: RADCTMAIN 12:49
PROVIDERS: ATTEND Urology
DX: N28.1 Cyst of kidney, acquired (principal)
CPT/HCPCS: 74178; 74400; Q9967

== ENCOUNTER → 2022-08-15 | Outpatient (CLI) | payer MEDICARE ==
[2022-08-15 09:38] VITALS: BP 136/85; PULSE 63; RESP 18; TEMP 98.9
--- NOTE | 2022-08-15 14:13 | P.PAINPG ---
PQRS Measure Charge Sheet Comment: A 57 yr old male with a history of severe and chronic LBP secondary to post laminectomy syndrome presents today for evaluation s/p Caudal CHRIS w Lysis. Pt states he experienced 100 % pain relief x 1 day s/p procedure. Pain level is provoked at 7/10 in intensity, constant, localized in the lumbar spine, sharp in character w shooting towards hips and BLEs. Pain is provoked by bending, standing/ walking for periods of 20 min or more. Pain is alleviated with massage therapy weekly x 8 mo in 2021, ice, meds, topicals, reclining and rest. Interventional pain procedures completed include Caudal CHRIS w Lysis Patient is currently on Percocet, Lyrica Patient denies any side effects of the medication(s), denies excessive drowsiness or sleepiness, denies suicidal ideation and reports that the current pain medication is helping to control the pain and improve activities of daily living. Patient denies any motor or sensory deficits. Patient denies any fever or night sweats, denies any change in the bowel movements or urination. Physical Examination: -Constitutional: Cooperative. Not in acute distress . - Neurologic: Cranial nerve II to XII intact. No focal neurological deficits. - Psychatric: Alert & oriented x 3. Matching mood & appropriate affect. Judgment and insight intact. - Musculoskeletal: Cervical spine: Muscle bulk/ tone/ strength in the bilateral upper extremities normal Vertebral body tenderness to palpation over Spurling test positive Distraction test positive Facet loading test positive TTP Thoracic spine Muscle bulk / tone/ strength in the bilateral paraspinal muscles normal Vertebral body tender to palpation over Facet loading test positive TTP Lumbar spine: Motor bulk/ tone/ strength lower extremities , thigh and legs : 5/5 Deep tendon reflexes : Normal Knee Jerk. Normal Ankle Jerk . Vertebral body tenderness to palpation over Lumbar Facet Loading Test positive Straight Leg Raise: positive at 30 degrees right side/ left side Gaenslen's Test positive Sacral spine : Severe tenderness over the Sacroiliac joint: right side / left side Range of motion: Flexion of the lumbar spine <60 degrees Range of motion: Extension of the lumbar spine <20 degrees Gaenslen's Test positive right side < left side Nacho test: positive right side / left side Thigh Thrust Test positive right side / left side Sacral Thrust Test positive right side < left side Assessment and plan: Chronic LBP secondary to post laminectomy syndrome Recommendation of BL SI injection. May need a series of injections for optimal pain relief. Risks, benefits of procedure discussed and pt verbalized understanding. Admits to anticoagulant use or medical history of diabetes. Protocol for discontinuation/ continuation of medications yamilet procedure discussed. All questions answered. I have spent less than 30 minutes on patient care today. Dr Babcock was available by phone for the evaluation of this patient. The time was used to review the medical records including relevant urine studies and Prescription history (MAPs), review of the available imaging, evaluation and examination of the patient, coordination of care with the medical staff and if applicable referring physicians, as well as creation of the medical record PQRS Narrative: Smoking Status Never smoker Hx Alcohol Use (MH) No Home Medications: Ambulatory Orders Tamsulosin [Flomax] 0.4 mg PO HS 03/30/21 oxyCODONE HCL/ACETAMINOPHEN [Percocet 10-325 mg] 0.5 tab PO Q3H 03/30/21 Pregabalin [Lyrica] 50 mg PO BID 03/22/22 Losartan [Cozaar] 25 mg PO DAILY 05/25/22 Unk Tumeric 2 - 3 tab PO DAILY 07/23/22 Controlled Substance Measures - Controlled Substance Measures Is patient prescribed a controlled substance at discharge?: No
== END ==
LOC: PNWHC3 07:45
PROVIDERS: ATTEND Specialist
DX: M96.1 Postlaminectomy syndrome, not elsewhere classified (principal); G89.29 Other chronic pain
CPT/HCPCS: 99211

== ENCOUNTER → 2022-11-21 | Outpatient (CLI) | payer MEDICARE ==
[2022-11-21 14:55] VITALS: BP 155/102; PULSE 68; RESP 15; TEMP 98.4
--- NOTE | 2022-11-21 15:17 | P.PAINPG ---
PQRS Measure Charge Sheet Comment: A 57 yr old male with a history of severe and chronic LBP secondary to post laminectomy syndrome presents today for evaluation. Pain level is provoked at 7/10 in intensity, constant, localized in the lumbar spine, sharp in character w shooting towards hips and BLEs. Pain is provoked by bending, standing/ walking for periods of 20 min or more. Pain is alleviated with massage therapy weekly x 8 mo in 2021, ice, meds, topicals, reclining and rest. Interventional pain procedures completed include Caudal CHRIS w Lysis Patient is currently on Percocet, Lyrica Patient denies any side effects of the medication(s), denies excessive drowsiness or sleepiness, denies suicidal ideation and reports that the current pain medication is helping to control the pain and improve activities of daily living. Patient denies any motor or sensory deficits. Patient denies any fever or night sweats, denies any change in the bowel movements or urination. Physical Examination: -Constitutional: Cooperative. Not in acute distress . - Neurologic: Cranial nerve II to XII intact. No focal neurological deficits. - Psychatric: Alert & oriented x 3. Matching mood & appropriate affect. Judgment and insight intact. - Musculoskeletal: Cervical spine: Muscle bulk/ tone/ strength in the bilateral upper extremities normal Vertebral body tenderness to palpation over Spurling test positive Distraction test positive Facet loading test positive TTP Thoracic spine Muscle bulk / tone/ strength in the bilateral paraspinal muscles normal Vertebral body tender to palpation over Facet loading test positive TTP Lumbar spine: Motor bulk/ tone/ strength lower extremities , thigh and legs : 5/5 Deep tendon reflexes : Normal Knee Jerk. Normal Ankle Jerk . Vertebral body tenderness to palpation over Lumbar Facet Loading Test positive Straight Leg Raise: positive at 30 degrees right side/ left side Gaenslen's Test positive Sacral spine : Severe tenderness over the Sacroiliac joint: right side / left side Range of motion: Flexion of the lumbar spine <60 degrees Range of motion: Extension of the lumbar spine <20 degrees Gaenslen's Test positive right side < left side Nacho test: positive right side / left side Thigh Thrust Test positive right side / left side Sacral Thrust Test positive right side < left side Assessment and plan: Chronic LBP secondary to post laminectomy syndrome Recommendation of medication management. Percocet and Lyrica w 1 RF. N arcotics/ opiate agreement signed today 11/21/22. All questions answered. I have spent less than 30 minutes on patient care today. Dr Babcock was available by phone for the evaluation of this patient. The time was used to review the medical records including relevant urine studies and Prescription history (MAPs), review of the available imaging, evaluation and examination of the patient, coordination of care with the medical staff and if applicable referring physicians, as well as creation of the medical record PQRS Narrative: Smoking Status Never smoker Hx Alcohol Use (MH) No Home Medications: Ambulatory Orders Tamsulosin [Flomax] 0.4 mg PO HS 03/30/21 Losartan [Cozaar] 25 mg PO DAILY 05/25/22 Unk Tumeric 2 - 3 tab PO DAILY 07/23/22 Pregabalin [Lyrica] 50 mg PO BID 90 Days #180 cap 11/21/22 oxyCODONE HCL/ACETAMINOPHEN [Percocet 10-325 mg] 1 tab PO QID PRN 30 Days #120 tab 11/21/22 Controlled Substance Measures - Controlled Substance Measures Is patient prescribed a controlled substance at discharge?: Yes When asked, does pt state using other controlled substances?: No If prescribed controlled substance>3 days was MAPS reviewed?: Yes If Rx opioid, was Start Talking consent form obtained?: Yes Was information provided regarding opioid addiction?: Yes
== END ==
LOC: PNWHC3 14:16
PROVIDERS: ATTEND Specialist
DX: M96.1 Postlaminectomy syndrome, not elsewhere classified (principal); G89.29 Other chronic pain
CPT/HCPCS: 99211

== ENCOUNTER → 2023-02-13 | Outpatient (CLI) | payer MEDICARE ==
[2023-02-13 15:13] VITALS: BP 154/107; PULSE 61; RESP 16; TEMP 98.7
--- NOTE | 2023-02-13 16:09 | P.PAINPG ---
PQRS Measure Charge Sheet Comment: A 57 yr old male with a history of severe and chronic LBP secondary to post laminectomy syndrome presents today for evaluation. Pain level is provoked at 7/10 in intensity, constant, localized in the lumbar spine, sharp in character w shooting towards hips and BLEs. Pain is provoked by bending, standing/ walking for periods of 20 min or more. Pain is alleviated with massage therapy weekly x 8 mo in 2021, ice, meds, topicals, reclining and rest. Oswestry axial pain score of 25. Interventional pain procedures completed include Caudal CHRIS w Lysis Patient is currently on Percocet, Lyrica Patient denies any side effects of the medication(s), denies excessive drowsiness or sleepiness, denies suicidal ideation and reports that the current pain medication is helping to control the pain and improve activities of daily living. Patient denies any motor or sensory deficits. Patient denies any fever or night sweats, denies any change in the bowel movements or urination. Physical Examination: -Constitutional: Cooperative. Not in acute distress . - Neurologic: Cranial nerve II to XII intact. No focal neurological deficits. - Psychatric: Alert & oriented x 3. Matching mood & appropriate affect. Judgment and insight intact. - Musculoskeletal: Cervical spine: Muscle bulk/ tone/ strength in the bilateral upper extremities normal Vertebral body tenderness to palpation over Spurling test positive Distraction test positive Facet loading test positive TTP Thoracic spine Muscle bulk / tone/ strength in the bilateral paraspinal muscles normal Vertebral body tender to palpation over Facet loading test positive TTP Lumbar spine: Motor bulk/ tone/ strength lower extremities , thigh and legs : 5/5 Deep tendon reflexes : Normal Knee Jerk. Normal Ankle Jerk . Vertebral body tenderness to palpation over L5 Lumbar Facet Loading Test positive Straight Leg Raise: positive at 30 degrees right side> left side Gaenslen's Test positive Sacral spine : Severe tenderness over the Sacroiliac joint: right side / left side Range of motion: Flexion of the lumbar spine <60 degrees Range of motion: Extension of the lumbar spine <20 degrees Gaenslen's Test positive right side < left side Nacho test: positive right side / left side Thigh Thrust Test positive right side / left side Sacral Thrust Test positive right side < left side Assessment and plan: Chronic LBP secondary to post laminectomy syndrome Recommendation of BL TFESI L5-S1. May need a series of injections for optimal pain relief. Risks, benefits of procedure discussed and patient verbalized understanding. Protocol for discontinuation/continuation of medications surrounding procedure discussed. All questions answered. I have spent less than 30 minutes on patient care today. Dr Babcock was available by phone for the evaluation of this patient. The time was used to review the medical records including relevant urine studies and Prescription history (MAPs), review of the available imaging, evaluation and examination of the patient, coordination of care with the medical staff and if applicable referring physicians, as well as creation of the medical record PQRS Narrative: Smoking Status Never smoker Narcotic Agreement Date Signed 11/21/22 Hx Alcohol Use (MH) No Home Medications: Ambulatory Orders Tamsulosin [Flomax] 0.4 mg PO HS 03/30/21 Losartan [Cozaar] 25 mg PO DAILY 05/25/22 Unk Tumeric 2 - 3 tab PO DAILY 07/23/22 oxyCODONE HCL/ACETAMINOPHEN [Percocet 10-325 mg] 1 tab PO QID PRN 30 Days #120 tab 11/21/22 Pregabalin [Lyrica] 50 mg PO BID 90 Days #180 cap 01/16/23 Controlled Substance Measures - Controlled Substance Measures Is patient prescribed a controlled substance at discharge?: No
== END ==
LOC: PNWHC3 13:44
PROVIDERS: ATTEND Specialist
DX: Z51.81 Encounter for therapeutic drug level monitoring (principal); M96.1 Postlaminectomy syndrome, not elsewhere classified; G89.29 Other chronic pain
CPT/HCPCS: 80307; G0463; 99211; 99212

== ENCOUNTER 2023-03-05 07:02 | Day surgery (SDC) | payer MEDICARE ==
[2023-03-01 10:51] VITALS: BMI 32.3
[~2023-03-05 07:02] MED LIST changes: -LIDOCAINE 1% (10MG/ML) FOR IV START INTRADERMA PRN
[2023-03-05 07:35] VITALS: RESP 16; TEMP 97.2
[2023-03-05] MEDS ORDERED: ROPIVACAINE 5MG/ML 20ML VIAL ONE (08:36)
[2023-03-05] MEDS ORDERED: DEXAMETHASONE SOD PHOSPHATE 10 MG/ML 1 ML VIAL ONE (08:36)
[2023-03-05] MEDS ORDERED: IOPAMIDOL M200 10 ML VIAL ONE (08:36)
--- NOTE | 2023-03-05 09:37 | P.PCN ---
Date of Procedure: 03/05/23 Description of Procedure: PREOPERATIVE DIAGNOSIS: 1-Lumbar radiculopathy . 2-lumbar degenerative disc disease. 3-lumbar spondylosis with lumbar facet arthropathy without myelopathy POSTOPERATIVE DIAGNOSIS: 1-lumbar radiculopathy. 2-lumbar degenerative disc disease. 3-lumbar spondylosis with facet arthropathy without myelopathy PROCEDURE 1. Transforaminal epidural steroid injection under fluoroscopic guidance at bilateral L4-5 level. (Fluoroscopy images stored on file in the radiology Department ) 2. Lumbar epidurogram . ANESTHESIA: Local with 1% lidocaine . EBL: Minimal PROCEDURE INDICATION: The patient with low back pain and radiculopathy symptoms unresponsive to conservative treatment. PROCEDURE DESCRIPTION / TECHNIQUE: The patient was seen and identified in the preoperative area. Risks, benefits, complications, and alternatives were discussed with the patient. The patient agreed to proceed with the procedure and signed the consent. IV was started, and vital signs were stable. Patient was taken to the OR and time out was completed. The patient was placed in the prone position on procedure table and a pillow was placed under the abdomen to reduce lumbar lordosis. The lumbosacral area was prepped and draped in the usual sterile fashion. Critical pause was taken. Vital signs were closely monitored during the procedure. Using oblique fluoroscopy, the chin of the ``Osvaldo dog at L4-5 level was identified, and the skin and deeper tissues just below was localized with 1% lidocaine. Subsequently, a 22-gauge 5 inch spinal needle was advanced under a tunneled view fluoroscopic guidance just underneath the chin of the ``Osvaldo dog at the right and left L4-5 Under lateral fluoroscopy, the needle was then advanced to the posterior border of the interforaminal space. Needle tip whereas on the posterior and inferior part of the foramen in lateral view of the fluoroscope .After negative aspiration of CSF and blood and with no paresthesias, focal milliliter of Isovue 200 was injected with continuous fluoro scope noticing the contrast in the epidural space and not intravascular or intrathecal. excellent epidurogram and outlining of the nerve root Subsequently, 3 mL of block solution containing 40 mg Depo-Medrol and 2 mL of 0.9% normal saline PF was injected in both right and left side. Needle was removed . At the end of the procedure, skin was cleansed, and bandages were applied. COMPLICATIONS:none DISPOSITION / PLANS: The patient was placed in a supine position and transferred to the recovery area in a stable condition for observation. There was no evidence of lower extremity motor or sensory deficit after the procedure. Patient was discharged from the recovery room after meeting discharge criteria. Home discharge instructions were given to the patient by the staff. The patient was reexamined prior to discharge.
[2023-03-05 09:43] VITALS: BP 148/89; PULSE 55
--- NOTE | 2023-03-05 10:26 | FL ---
EXAMINATION TYPE: FL guided pain mgmt statistic DATE OF EXAM: 03/05/2023 HISTORY: Fluoroscopy time Total dose area product (DAP) in uGy*m?, mGy*cm? (or similar): 0.80025 IMPRESSION: 1. Fluoroscopy time.
== END 2023-03-05 09:35 | disposition home or self-care (01) ==
LOC: ORPAIN 07:02
PROVIDERS: ATTEND Pain Medicine Interventional Pain Medicine
DX: M51.16 Intervertebral disc disorders with radiculopathy, lumbar region (principal); M47.26 Other spondylosis with radiculopathy, lumbar region; Z79.899 Other long term (current) drug therapy; Z87.890 Personal history of sex reassignment
CPT/HCPCS: 64483; J1100; Q9966; J2795

== ENCOUNTER → 2023-03-25 | Outpatient (CLI) | payer MEDICARE ==
[2023-03-25 08:05] VITALS: BP 178/101; PULSE 60; RESP 16
--- NOTE | 2023-03-25 12:46 | P.PAINPG ---
PQRS Measure Charge Sheet Comment: A 57 yr old male with a history of severe and chronic LBP secondary to post laminectomy syndrome presents today for evaluation s/p BL RFESI L5-S1. Pt states he experienced 70% pain relief x 3 wks s/p procedure. Pain level is provoked at 9/10 in intensity, constant, localized in the lumbar spine, predominantly axial, sharp in character w occasional shooting towards hips and LLE. Pain is provoked by bending, standing/ walking for periods of 20 min or more. Pain is alleviated with injections, massage therapy weekly x 8 mo in 2021, ice, meds, topicals, reclining and rest. Oswestry axial pain score of 23. Interventional pain procedures completed include Caudal CHRIS w Lysis, BL TFESI L5-S1 x1 Patient is currently on Percocet, Lyrica Patient denies any side effects of the medication(s), denies excessive drowsiness or sleepiness, denies suicidal ideation and reports that the current pain medication is helping to control the pain and improve activities of daily living. Patient denies any motor or sensory deficits. Patient denies any fever or night sweats, denies any change in the bowel movements or urination. Physical Examination: -Constitutional: Cooperative. Not in acute distress . - Neurologic: Cranial nerve II to XII intact. No focal neurological deficits. - Psychatric: Alert & oriented x 3. Matching mood & appropriate affect. Judgment and insight intact. - Musculoskeletal: Cervical spine: Muscle bulk/ tone/ strength in the bilateral upper extremities normal Vertebral body tenderness to palpation over Spurling test positive Distraction test positive Facet loading test positive TTP Thoracic spine Muscle bulk / tone/ strength in the bilateral paraspinal muscles normal Vertebral body tender to palpation over Facet loading test positive TTP Lumbar spine: Motor bulk/ tone/ strength lower extremities , thigh and legs : 5/5 Deep tendon reflexes : Normal Knee Jerk. Normal Ankle Jerk . Vertebral body tenderness to palpation over L5 Lumbar Facet Loading Test positive Straight Leg Raise: positive at 30 degrees right side> left side Gaenslen's Test positive Sacral spine : Severe tenderness over the Sacroiliac joint: right side / left side Range of motion: Flexion of the lumbar spine <60 degrees Range of motion: Extension of the lumbar spine <20 degrees Gaenslen's Test positive right side < left side Nacho test: positive right side / left side Thigh Thrust Test positive right side / left side Sacral Thrust Test positive right side < left side Assessment and plan: Chronic LBP secondary to post laminectomy syndrome Recommendation of BL TFESI L5-S1 #2. May need a series of injections for optimal pain relief. Risks, benefits of procedure discussed and patient verbalized understanding. Protocol for discontinuation/continuation of medications surrounding procedure discussed. UDS from 02/13/23 reviewed and consistent. Refilled Percocet 10/325mg #120, Lyrica #180 (90 day refill). All questions answered. I have spent less than 30 minutes on patient care today. Dr Babcock was available by phone for the evaluation of this patient. The time was used to review the medical records including relevant urine studies and Prescription history (MAPs), review of the available imaging, evaluation and examination of the patient, coordination of care with the medical staff and if applicable referring physicians, as well as creation of the medical record - Pain Location Bilateral Lower Back Non-Pharmacological Interventions: Heat, Inactivity, Physical Therapy, Position/Reposition, Sitting Pharmacological Interventions: Epidural, PRN Medication, Scheduled Medication, Topical Medication PQRS Narrative: Smoking Status Never smoker Narcotic Agreement Date Signed 02/13/23 Hx Alcohol Use (MH) No Home Medications: Ambulatory Orders Losartan [Cozaar] 25 mg PO DAILY 05/25/22 Pregabalin [Lyrica] 50 mg PO BID 90 Days #180 cap 03/25/23 oxyCODONE HCL/ACETAMINOPHEN [Percocet 10-325 mg Tablet] 1 each PO QID PRN 30 Days #120 tab 03/25/23 oxyCODONE HCL/ACETAMINOPHEN [Percocet 10-325 mg] 1 tab PO QID PRN 30 Days #120 tab 03/25/23 Controlled Substance Measures - Controlled Substance Measures Is patient prescribed a controlled substance at discharge?: Yes When asked, does pt state using other controlled substances?: No If prescribed controlled substance>3 days was MAPS reviewed?: Yes
== END ==
LOC: PNWHC3 07:18
PROVIDERS: ATTEND Specialist
DX: M96.1 Postlaminectomy syndrome, not elsewhere classified (principal)
CPT/HCPCS: 99211

== ENCOUNTER 2023-04-09 07:37 | Day surgery (SDC) | payer MEDICARE ==
[2023-04-08 09:19] VITALS: BMI 32.3
[2023-04-09 09:11] VITALS: RESP 16; TEMP 97.5
[2023-04-09] MEDS ORDERED: ROPIVACAINE 5MG/ML 20ML VIAL ONE (09:38)
[2023-04-09] MEDS ORDERED: IOPAMIDOL M200 10 ML VIAL ONE (09:38)
[2023-04-09] MEDS ORDERED: DEXAMETHASONE SOD PHOSPHATE 10 MG/ML 1 ML VIAL ONE (09:38)
[2023-04-09 10:48] VITALS: BP 150/95; PULSE 56
--- NOTE | 2023-04-09 11:08 | FL ---
EXAMINATION TYPE: FL guided pain mgmt statistic DATE OF EXAM: 04/09/2023 HISTORY: Fluoroscopy time Total dose area product (DAP) in uGy*m?, mGy*cm? (or similar): 0.50768 IMPRESSION: 1. Fluoroscopy time.
--- NOTE | 2023-04-09 11:29 | P.PCN ---
Description of Procedure: PREOPERATIVE DIAGNOSIS: 1-Lumbar radiculopathy . 2-lumbar degenerative disc disease. 3-lumbar spondylosis with lumbar facet arthropathy without myelopathy POSTOPERATIVE DIAGNOSIS: 1-lumbar radiculopathy. 2-lumbar degenerative disc disease. 3-lumbar spondylosis with facet arthropathy without myelopathy PROCEDURE 1. Transforaminal epidural steroid injection under fluoroscopic guidance at Bilateral L5-S1 level. (Fluoroscopy images stored on file in the radiology Department ) 2. Lumbar epidurogram . ANESTHESIA: Local with 1% lidocaine 5 ml. subcutaneously. Continuous pulse ox, EKG, blood pressure and verbal communication was maintained with the patient. EBL: Minimal PROCEDURE INDICATION: The patient with low back pain and radiculopathy symptoms unresponsive to conservative treatment. The patient was seen and identified in the preoperative area. Risks, benefits, complications, and alternatives were discussed with the patient. The patient agreed to proceed with the procedure and signed the consent. IV was started, and vital signs were stable. PROCEDURE DESCRIPTION / TECHNIQUE: After getting consent, patient was taken to the OR and time out was completed. The patient was placed in the prone position on procedure table and a pillow was placed under the abdomen to reduce lumbar lordosis. The lumbosacral area was prepped and draped in the usual sterile fashion. Critical pause was taken. After injecting 5 mL of plain 1% lidocaine subcutaneously, under oblique view of the fluoroscope, a 22-gauge spinal needle was introduced under the tunnel view of the fluoroscope on the right side and the needle was advanced so that the tip of the needle was at the posterior inferior quadrant of the intervertebral foramen at the lateral view of the fluoroscope and in the lateral third of the facet column in the AP view of the fluoroscope. Negative CSF, negative blood, n egative paresthesia. After needle position confirmation by AP and cross table lateral view, 3 mL of Isovue-M 200 contrast was injected under continuous fluoroscope. No contrast was noted in the intrathecal or intravascular space. The epidurogram was noted. Again after repeated negative aspiration 2-1/2 mL solution was injected which consists 1-1/2 mL of normal saline mixed with 1 mL of 10 mg dexamethasone. Needle was removed . Same procedure was repeated at the left level (s). At the end of the procedure, skin was cleansed, and bandages were applied. DISPOSITION / PLANS: No complication. The patient tolerated the procedure well. The patient was placed in a supine position and transferred to the recovery area in a stable condition for observation. There was no evidence of lower ex tremity motor or sensory deficit after the procedure. Patient was discharged from the recovery room after meeting discharge criteria. Home discharge instructions were given to the patient by the staff. The patient was reexamined prior to discharge.
== END 2023-04-09 10:37 | disposition home or self-care (01) ==
LOC: ORPAIN 07:37
PROVIDERS: ATTEND Pain Medicine Interventional Pain Medicine
DX: M51.16 Intervertebral disc disorders with radiculopathy, lumbar region (principal); M47.26 Other spondylosis with radiculopathy, lumbar region; Z79.899 Other long term (current) drug therapy
CPT/HCPCS: 64483; J1100; Q9966; J2795

== ENCOUNTER → 2023-05-20 | Outpatient (CLI) | payer MEDICARE ==
[2023-05-20 08:13] VITALS: BP 155/102; PULSE 56; RESP 16; TEMP 97.1
--- NOTE | 2023-05-20 14:49 | P.PAINPG ---
PQRS Measure Charge Sheet Comment: A 58 yr old male with a history of severe and chronic LBP secondary to post laminectomy syndrome presents today for evaluation s/p BL TFESI L5-S1 #2. Pt states he experienced 90 % pain relief x 1 day s/p procedure. Pain level is provoked at 9/10 in intensity, constant, localized in the lumbar spine, predom inantly axial., burning in character w occasional shooting towards hips and R knee. Pain is provoked by standing/ walking for periods of 20 min or more. Pain is alleviated with injections, massage therapy weekly x 8 mo in 2021, ice, meds, topicals, reclining and rest. Oswestry axial pain score of 23. Interventional pain procedures completed include Caudal CHRIS w Lysis, BL TFESI L5-S1 x2 Patient is currently on Percocet, Lyrica Patient denies any side effects of the medication(s), denies excessive drowsiness or sleepiness, denies suicidal ideation and reports that the current pain medication is helping to control the pain and improve activities of daily living. Patient denies any motor or sensory deficits. Patient denies any fever or night sweats, denies any change in the bowel movements or urination. Physical Examination: -Constitutional: Cooperative. Not in acute distress . - Neurologic: Cranial nerve II to XII intact. No focal neurological deficits. - Psychatric: Alert & oriented x 3. Matching mood & appropriate affect. Judgment and insight intact. - Musculoskeletal: Cervical spine: Muscle bulk/ tone/ strength in the bilateral upper extremities normal Vertebral body tenderness to palpation over Spurling test positive Distraction test positive Facet loading test positive TTP Thoracic spine Muscle bulk / tone/ strength in the bilateral paraspinal muscles normal Vertebral body tender to palpation over Facet loading test positive TTP Lumbar spine: Motor bulk/ tone/ strength lower extremities , thigh and legs : 5/5 Deep tendon reflexes : Normal Knee Jerk. Normal Ankle Jerk . Vertebral body tenderness to palpation over L5 Lumbar Facet Loading Test positive Straight Leg Raise: positive at 30 degrees right side> left side Gaenslen's Test positive Sacral spine : Severe tenderness over the Sacroiliac joint: right side / left side Range of motion: Flexion of the lumbar spine <60 degrees Range of motion: Extension of the lumbar spine <20 degrees Gaenslen's Test positive right side < left side Nacho test: positive right side / left side Thigh Thrust Test positive right side / left side Sacral Thrust Test positive right side < left side Assessment and plan: Chronic LBP secondary to post laminectomy syndrome Recommendation of medication management. Can not tolerate Caudal CHRIS w lysis without IV sedation. UDS from 02/13/23 reviewed and consistent. Refilled Percocet 10/325mg #120, Lyrica #180 (90 day refill). All questions answered. - Pain Location Bilateral Lower Back Non-Pharmacological Interventions: Distraction, Heat, Inactivity, Physical Therapy, Position/Reposition, Relaxation Technique, Sitting, Standing Pharmacological Interventions: Epidural, PRN Medication, Scheduled Medication PQRS Narrative: Smoking Status Never smoker Narcotic Agreement Date Signed 02/13/23 Hx Alcohol Use (MH) No Home Medications: Ambulatory Orders Losartan [Cozaar] 25 mg PO DAILY 05/25/22 Pregabalin [Lyrica] 50 mg PO BID 90 Days #180 cap 05/20/23 oxyCODONE HCL/ACETAMINOPHEN [Percocet 10-325 mg] 1 each PO QID PRN 30 Days #120 tab 05/20/23 oxyCODONE HCL/ACETAMINOPHEN [Percocet 10-325 mg] 1 tab PO QID PRN 30 Days #120 tab 05/20/23 Controlled Substance Measures - Controlled Substance Measures Is patient prescribed a controlled substance at discharge?: Yes When asked, does pt state using other controlled substances?: No If prescribed controlled substance>3 days was MAPS reviewed?: Yes
== END ==
LOC: PNWHC3 07:21
PROVIDERS: ATTEND Specialist
DX: M96.1 Postlaminectomy syndrome, not elsewhere classified (principal); M47.816 Spondylosis without myelopathy or radiculopathy, lumbar region; G89.29 Other chronic pain
CPT/HCPCS: 99211

== ENCOUNTER → 2023-07-15 | Outpatient (CLI) | payer MEDICARE ==
[2023-07-15 08:27] VITALS: BP 166/102; PULSE 76; RESP 15; TEMP 98.5
--- NOTE | 2023-07-15 14:17 | P.PAINPG ---
PQRS Measure Charge Sheet Comment: A 58 yr old male with a history of severe and chronic LBP secondary to post laminectomy syndrome presents today for medication refillls. Pain level is provoked at 8 /10 in intensity, constant, localized in the lumbar spine, predominantly axial., burning in character w occasional shooting towards hips and knees. Pain is provoked by standing/ walking for periods of 20 min or more. Pain is alleviated with injections, massage therapy weekly x 8 mo in 2021, ice, meds, topicals, reclining and rest. Oswestry axial pain score of 24. Interventional pain procedures completed include Caudal CHRIS w Lysis, BL TFESI L5-S1 x2 Patient is currently on Percocet, Lyrica Patient denies any side effects of the medication(s), denies excessive drowsiness or sleepiness, denies suicidal ideation and reports that the current pain medication is helping to control the pain and improve activities of daily living. Patient denies any motor or sensory deficits. Patient denies any fever or night sweats, denies any change in the bowel movements or urination. Physical Examination: -Constitutional: Cooperative. Not in acute distress . - Neurologic: Cranial nerve II to XII intact. No focal neurological deficits. - Psychatric: Alert & oriented x 3. Matching mood & appropriate affect. Judgment and insight intact. - Musculoskeletal: Cervical spine: Muscle bulk/ tone/ strength in the bilateral upper extremities normal Vertebral body tenderness to palpation over Spurling test positive Distraction test positive Facet loading test positive TTP Thoracic spine Muscle bulk / tone/ strength in the bilateral paraspinal muscles normal Vertebral body tender to palpation over Facet loading test positive TTP Lumbar spine: Motor bulk/ tone/ strength lower extremities , thigh and legs : 5/5 Deep tendon reflexes : Normal Knee Jerk. Normal Ankle Jerk . Vertebral body tenderness to palpation over L5 Lumbar Facet Loading Test positive King Test positive Straight Leg Raise: positive at 30 degrees right side> left side Gaenslen's Test positive Sacral spine : Severe tenderness over the Sacroiliac joint: right side / left side Range of motion: Flexion of the lumbar spine <60 degrees Range of motion: Extension of the lumbar spine <20 degrees Gaenslen's Test positive right side < left side Nacho test: positive right side / left side Thigh Thrust Test positive right side / left side Sacral Thrust Test positive right side < left side Assessment and plan: Chronic LBP secondary to post laminectomy syndrome Recommendation of medication management. Can not tolerate Caudal CHRIS w lysis without IV sedation. UDS from 02/13/23 reviewed and consistent. Refilled Percocet 10/325mg #120, Lyrica #180 (90 day refill). All questions answered. - Pain Location Bilateral Lower Back Non-Pharmacological Interventions: Heat, Inactivity, Position/Reposition Pharmacological Interventions: Epidural, Scheduled Medication PQRS Narrative: Smoking Status Never smoker Narcotic Agreement Date Signed 02/13/23 Hx Alcohol Use (MH) No Home Medications: Ambulatory Orders Losartan [Cozaar] 25 mg PO DAILY 05/25/22 Pregabalin [Lyrica] 50 mg PO BID 90 Days #180 cap 07/15/23 oxyCODONE HCL/ACETAMINOPHEN [Percocet 10-325 mg] 1 each PO QID PRN 30 Days #120 tab 07/15/23 oxyCODONE HCL/ACETAMINOPHEN [Percocet 10-325 mg] 1 tab PO QID PRN 30 Days #120 tab 07/15/23 Controlled Substance Measures - Controlled Substance Measures Is patient prescribed a controlled substance at discharge?: Yes When asked, does pt state using other controlled substances?: No If prescribed controlled substance>3 days was MAPS reviewed?: Yes
== END ==
LOC: PNWHC3 07:19
PROVIDERS: ATTEND Specialist
DX: M54.16 Radiculopathy, lumbar region (principal); M96.1 Postlaminectomy syndrome, not elsewhere classified; G89.29 Other chronic pain
CPT/HCPCS: 99211

== ENCOUNTER 2023-07-22 15:40 | Emergency (ER) | payer MEDICARE ==
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
[2023-07-22 17:07] VITALS: TEMP 98.2
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
[2023-07-22] MEDS: DIPH,PERTUS(ACELL)TETVAC-LF 0.5 ML VIAL IM ONE (18:02)
[2023-07-22 19:47] VITALS: BP 144/95; PULSE 60; RESP 12
== END 2023-07-22 19:27 | disposition home or self-care (01) ==
LOC: EC 15:40
DX: S01.411A Laceration without foreign body of right cheek and temporomandibular area, initial encounter (principal); Z23 Encounter for immunization; Z87.891 Personal history of nicotine dependence; W17.89XA Other fall from one level to another, initial encounter; Y92.007 Garden or yard of unspecified non-institutional (private) residence as the place of occurrence of the external cause
CPT/HCPCS: 12054; 70450; 70486; 72125; 90471; 90715; 99284